=== PATIENT | male | born 1985 | race Caucasian/White ===

== ENCOUNTER 2020-01-04 15:42 | Emergency (ER) | payer MEDICAID, SELFPAY ==
[2020-01-04 16:11] VITALS: BP_SYST 160
[2020-01-04 16:23] VITALS: BP_SYST 160
== END 2020-01-04 16:20 | disposition home or self-care (01) ==
LOC: SED 15:42
DX: R50.9 Fever, unspecified (principal); Z20.828 Contact with and (suspected) exposure to other viral communicable diseases
CPT/HCPCS: 99283; U0003

== ENCOUNTER 2020-03-08 01:49 | Inpatient (IN) | payer MEDICAID, SELFPAY ==
[~2020-03-08] VITALS: Ht 167.6 cm; Wt 134.7 kg
[2020-03-08] VITALS (9 sets, daily range): BP systolic 120–175
--- NOTE | 2020-03-08 01:50 | NUR ---
Patient to ER bed 8 to gown for evaluation. Side rails up. Report given to SO CHOI.
--- NOTE | 2020-03-08 01:53 | NUR ---
ER at bedside examining patient.
--- NOTE | 2020-03-08 01:55 | NUR ---
Patient presents to the ER c/o lower abdominal pain radiating to left lower back x today. Patient states last BM x yesterday. Pt states pain started yesterday x 5 pm but has increased through the night. Pt radiates pain /. Denies pain when urinating, passing BM.
[2020-03-08] MEDS ORDERED: NACL 0.9% 1,000 ML IV ONE (02:01)
[2020-03-08] MEDS ORDERED: MORPHINE 4 MG/ML INJ. SYRINGE IVP ONE (02:15)
[2020-03-08] MEDS ORDERED: DIPHENHYDRAMINE INJ 50 MG/ML VIAL IVP ONE (02:15)
--- NOTE | 2020-03-08 02:43 | NUR ---
Pt taken to CT scan via gurney accompained by visitor services technician.
[2020-03-08 02:44] LABS: BASOPHILS # (AUTO) 0.1 K/uL (0.0-0.2); BASOPHILS % (AUTO) 0.4 % (0.0-2.0); EOSINOPHILS # (AUTO) 0.1 K/uL (0.0-0.4); EOSINOPHILS % (AUTO) 0.6 % (0.0-4.0); HEMATOCRIT 47.9 % (36-54); HEMOGLOBIN 15.5 g/dL (14.0-18.0); MEAN CORPUSCULAR HEMOGLOBIN 30 pg (27-31); MEAN CORPUSCULAR HGB CONC 32 % (32-36); MEAN CORPUSCULAR VOLUME 91 fL (79.0-98.0); MONOCYTES % (AUTO) 5.6 % (1.7-9.3); NEUTROPHILS # (AUTO) 13.3 K/uL (1.8-7.7); NEUTROPHILS % (AUTO) 76.4 % (40.0-70.0); PLATELET COUNT (AUTO) 346 K/uL (130-430); RED BLOOD CELL COUNT(AUTO) 5.25 MIL/uL (4.2-6.2); RED CELL DISTRIBUTION WIDTH 13.6 % (9.0-15.0); WHITE BLOOD COUNT (AUTO) 17.5 K/uL (4.8-10.8)
[2020-03-08 02:54] LABS: CALCIUM 8.8 mg/dL (8.4-11.0); CREATININE 0.87 mg/dL (0.55-1.30); POTASSIUM 3.7 mmol/L (3.5-5.1); TOTAL BILIRUBIN 0.5 mg/dL (0.0-1.0)
[2020-03-08 02:58] LABS: BILIRUBIN,URINE 1+ (NEGATIVE); BLOOD, URINE 1+ (NEGATIVE); CLARITY/URINE SL CLOUDY (CLEAR); COLOR,URINE YELLOW (YELLOW); GLUCOSE,URINE NEGATIVE (NEGATIVE); KETONES,URINE NEGATIVE (NEGATIVE); LEUKOCYTE ESTERASE ,URINE NEGATIVE (NEGATIVE); NITRITE, URINE NEGATIVE (NEGATIVE); PROTEIN URINE TRACE (NEGATIVE)
[2020-03-08] MEDS ORDERED: fentaNYL CITRATE/PF 100 MCG/2 ML AMP IVP ONE (03:30)
[2020-03-08 03:37] LABS: BACTERIA,URINE MODERATE /HPF (None Seen)
--- NOTE | 2020-03-08 03:50 | NUR ---
CHRISTIE COVID SWAB SENT TO LAB
[2020-03-08] MEDS ORDERED: PIPERACILLIN/TAZO 4.5 GM in NS 100 ML IV ONE (04:30)
[2020-03-08] MEDS ORDERED: ONDANSETRON HCL 4 MG/2 ML VIAL IVP PRN ×2 (04:30→18:45)
--- NOTE | 2020-03-08 04:35 | NUR ---
Patient will be admitted to care of Dr Beltran. Admitted to Medical Surgical unit. Will go to room 109c. Belongings list completed. Complete and up to date summary report printed. SBAR report to be given at bedside with opportunity for questions.
--- NOTE | 2020-03-08 05:24 | NUR ---
ADMIT NOTE Received pt from ER to the floor with a diagnosis of Laproscopic appendectomy possible open. Admission process initiated. patient oriented to pain management, safety and call light-teach back done.
--- NOTE | 2020-03-08 06:30 | NUR ---
CLOSING NOTES: Patient is laying in bed A&O x4 with no s/s of distress or discomfort. He does not have any complaints of pain at this time. IV on LAC patent and intact. Patient is NPO. All safety measures have been ensured. Bed is in the lowest position and call light within reach. Will endorse to dayshift nurse.
--- NOTE | 2020-03-08 07:23 | NUR ---
Dr. Witt called nursing station updated Dr. Witt on patient condition and situation. He stated he is planning to do surgery in mid-afternoon, around 1PM. Informed day shift RN.
--- NOTE | 2020-03-08 07:25 | NUR ---
Opening Note Patient is laying in bed A&O x4 with no signs of distress or discomfort noted, safety measures put in place, bed locked and at low position, call light within reach, fall and aspiration precautions put in place, will monitor patient for any changes.
[2020-03-08] MEDS: D5NS 1,000 ML IV SCH ×3 (09:56→21:44)
--- NOTE | 2020-03-08 09:58 | NUR ---
RN Rounds/Medication patient in bed awake and alert, administered medication ordered per MD, patient tolerated well, will continue to monitor patient for any changes, safety measures maintained.
--- NOTE | 2020-03-08 13:00 | NUR ---
Dr. Witt rounds spoke with the patient at bedside regarding surgery today, discussed risk/benefit with the patient, patient signed consent.
--- NOTE | 2020-03-08 13:09 | NUR ---
Spoke with Pharmacy spoke with Jah to send Zosyn 4.5gm IV to O.R. to be administered per Dr. Witt.
--- NOTE | 2020-03-08 13:15 | NUR ---
Surgery patient taken to surgery, patient stable.
[2020-03-08] MEDS ORDERED: HYDROmorphone 1 MG INJ. 1 MG/ML AMPUL IVP PRN ×2 (14:30→18:45)
[2020-03-08] MEDS ORDERED: NALOXONE HCL 0.4 MG/ML AMP (NARCAN) IVP PRN ×3 (14:30→18:45)
[2020-03-08] MEDS ORDERED: METOCLOPRAMIDE HCL 10 MG/2 ML VIAL IVP PRN (14:30)
[2020-03-08] MEDS: PIPERACILLIN/TAZO 4.5GM/DEX-IS 100 ML IV SCH ×2 (16:55→21:43)
[2020-03-08] MEDS ORDERED: PROPOFOL 200MG/ 20ML VIAL (DIPRIVAN) IV ONE (18:40)
[2020-03-08] MEDS ORDERED: NS 1000 ML IV.SOLN IV ONE (18:40)
[2020-03-08] MEDS ORDERED: SEVOFLURANE 15 MIN GAS INH ONE (18:40)
[2020-03-08] MEDS ORDERED: SUCCINYLCHOLINE CHLORIDE 20 MG/ML(QUELICIN) ONE (18:40)
[2020-03-08] MEDS ORDERED: fentaNYL CITRATE 250 MCG/5 ML AMP ONE (18:40)
[2020-03-08] MEDS ORDERED: NS IRRIG SOLN 1000 ML IR ONE (18:40)
[2020-03-08] MEDS ORDERED: ROCURONIUM BROMIDE 10 MG/ML (ZEMURON) ONE (18:40)
[2020-03-08] MEDS ORDERED: LR 1,000 ML IV.SOLN IV ONE (18:40)
[2020-03-08] MEDS ORDERED: LR 1,000 ML IV SCH (18:45)
--- NOTE | 2020-03-08 18:55 | NUR ---
Closing Note patient still in O.R., will endorse patient care to oncoming rug shampooer nurse.
[2020-03-08] MEDS ORDERED: HYDROmorphone 2 MG/ML VIAL ONE (19:27)
--- NOTE | 2020-03-08 20:00 | NUR ---
Opening note Received patient from recovery room via bed. Report received and assumed care. Patient s/p open appendectomy complicated with lysis of adhesions and bladder repair. AAO x 4, requires occasional reminders for safety. Connected to ICU monitor and vital signs taken. Abdominal binder observed with dressings CDI. IV site Left AC #20g, required redressing for patency. IVF infusing as per MD orders after verification. WILMAN drains x 2 noted with sanguinous drainage. Patient has Hx of sleep apnea requiring cpap that will be placed by RT when patient ready. No signs of distress noted as patient currently has O2 being delivered via simple mask at 10 L/min. Will continue to monitor patient as per unit protocol.
--- NOTE | 2020-03-08 20:40 | NUR ---
DR. MARIAH RIGGS CALLED TO CLARIFY ORDERS FOR IVF. PER MD MEZA LR AND CONTINUE D5NS @ 100 CC/HR. WILL CARRY OUT ORDERED.
[2020-03-08] MEDS: GABAPENTIN 300 MG CAPSULE PO SCH (21:00)
[2020-03-08] MEDS: KETOROLAC TROMETHAMINE 15 MG VIAL IVP SCH (21:38)
--- NOTE | 2020-03-08 22:30 | NUR ---
Patient requiring repositioning for comfort. Limited tolerance for mobility noted at this time due to post surgical pain to abdominal area. Morphine 4 mg IVP given. See details in MAR.
[2020-03-08] MEDS: MORPHINE 4 MG/ML INJ. SYRINGE IVP PRN (22:33)
[2020-03-09] VITALS (23 sets, daily range): BP systolic 99–152
--- NOTE | 2020-03-09 00:37 | NUR ---
DR. MARIAH RIGGS MADE AWARE OF PT TEMPERATURE 101.5 AND HR SUSTAINING IN 120s - 130s DESPITE PAIN MEDICATIONS THAT WERE GIVEN. TYLENOL 650 MG VIA NGT Q4H PRN ORDERED BY . WILL BE CARRIED OUT ORDERED.
[2020-03-09] MEDS ORDERED: ACETAMINOPHEN 650 MG/20.3 ML UDC NG PRN (00:45)
--- NOTE | 2020-03-09 01:00 | NUR ---
Dr LEMUS contacted and orders received by charge nurse Danielle for Tylenol. Patient has fever 101.5 F. Given via GT.
[2020-03-09] MEDS ORDERED: ACETAMINOPHEN 650 MG/20.3 ML UDC ONE (01:08)
[2020-03-09] MEDS: PIPERACILLIN/TAZO 4.5GM/DEX-IS 100 ML IV SCH ×3 (05:58→22:03)
[2020-03-09] MEDS: KETOROLAC TROMETHAMINE 15 MG VIAL IVP SCH ×3 (05:59→22:06)
[2020-03-09 06:21] LABS: BASOPHILS # (AUTO) 0.1 K/uL (0.0-0.2); BASOPHILS % (AUTO) 0.4 % (0.0-2.0); HEMATOCRIT 40.9 % (36-54); HEMOGLOBIN 13.7 g/dL (14.0-18.0); LYMPHOCYTES # (AUTO) 2.3 K/uL (1.0-5.5); LYMPHOCYTES % (AUTO) 13.5 % (20.5-51.5); MEAN CORPUSCULAR HEMOGLOBIN 31 pg (27-31); MEAN CORPUSCULAR HGB CONC 33 % (32-36); MEAN CORPUSCULAR VOLUME 92 fL (79.0-98.0); MONOCYTES # (AUTO) 1.3 K/uL (0.0-1.0); MONOCYTES % (AUTO) 7.5 % (1.7-9.3); NEUTROPHILS # (AUTO) 13.5 K/uL (1.8-7.7); NEUTROPHILS % (AUTO) 78.6 % (40.0-70.0); PLATELET COUNT (AUTO) 296 K/uL (130-430); RED BLOOD CELL COUNT(AUTO) 4.48 MIL/uL (4.2-6.2); RED CELL DISTRIBUTION WIDTH 13.9 % (9.0-15.0); WHITE BLOOD COUNT (AUTO) 17.1 K/uL (4.8-10.8)
[2020-03-09 06:54] LABS: CALCIUM 7.6 mg/dL (8.4-11.0); CREATININE 0.97 mg/dL (0.55-1.30); POTASSIUM 3.9 mmol/L (3.5-5.1)
--- NOTE | 2020-03-09 07:00 | NUR ---
Dr Witt at bedside Orders received for Ok for patient to be transferred to Telemetry unit. Patient reported wanting to drink but Dr Witt reported that at this point will continue NPO due to excess swelling of the bowels; "if ice would be given, patient needs to spit it out after melting".
--- NOTE | 2020-03-09 07:15 | NUR ---
Monitoring pt on telemetry status per md order
--- NOTE | 2020-03-09 07:15 | NUR ---
Opening Note Received report from endorsing RN. Pt currently asleep, arousable, on 5L O2 via NC. Pt does not want CPAP on at this time. NGT to low intermittent suction with dark green drainage. Dressings intact, minimal drainage noted. WILMAN drains on right and left abdomen with sanguineous drainage. Sales in place with blood tinged with some yellow urine draining to gravity. Afebrile. Abdominal binder in place. No other complaints at this time.
[2020-03-09] MEDS ORDERED: metroNIDAZOLE 500 mg/NS 100 ML IV ONE (09:00)
[2020-03-09] MEDS: GABAPENTIN 300 MG CAPSULE PO SCH ×3 (09:11→21:00)
--- NOTE | 2020-03-09 10:11 | NUR ---
Pt awake and brushing teeth. States pain 3/10, bearable.
--- NOTE | 2020-03-09 11:00 | NUR ---
Dr. Alfreda Rosario rounding on pt who is sleeping at this moment. Dr. Rosario made aware about pt not wanting to wear cpap for sleep. Pt currently on 5L O2 via NC, saturates 94-98%. No acute distress noted at this time.
[2020-03-09] MEDS: MORPHINE 4 MG/ML INJ. SYRINGE IVP PRN (12:48)
[2020-03-09] MEDS: D5NS 1,000 ML IV SCH ×2 (12:52→22:16)
--- NOTE | 2020-03-09 13:13 | NUR ---
Administered prn morphine per MD order and repositioned pt. Pt doing oral care. No other complaints at this time.
--- NOTE | 2020-03-09 14:46 | NUR ---
Nutrition Update Carlos Scale 15 noted. Pt admitted for laparoscopic appendectomy possible open. Diet: NPO BMI: 47.9 kg/m2 RD to follow per nutrition care standards.
--- NOTE | 2020-03-09 16:02 | NUR ---
Repositioned pt, pt states pain is bearable right now at 2/10. Performing self oral care. Pt's mother called and states she will drop off cpap machine for pt.
--- NOTE | 2020-03-09 17:00 | NUR ---
Received CPAP machine from home from patient's mother, Mary.
[2020-03-09] MEDS: metroNIDAZOLE 500 mg/NS 100 ML IV SCH (17:52)
--- NOTE | 2020-03-09 18:25 | NUR ---
Patient placed back on CPAP 5, 25% by RT.
--- NOTE | 2020-03-09 19:09 | NUR ---
Closing Pt in no distress at this time, states pain is bearable at 2/10. IV site intact, patent, no infiltration noted. No other complaints at this time. Endorsed plan of care to night shift supervisor RN.
--- NOTE | 2020-03-09 19:15 | NUR ---
Report received from day shift nurse. Pt is sleeping but easily arousable. Pt denies pain or discomfort. Pt is on CPAP at 5 with FIO2 of 25% and no respiratory distress noted. IVF of D5NS is infusing well via LAC at 100ml/hr without any signs of infiltration. NG Tube in left nare is connected to LIS and noted with brownish drainage. Abdominal dressing noted with abdominal binder in place. Right and left WILMAN drains to bulb suction noted with small amount of bloody drainage. Left WILMAN site noted with old blood stain and no signs of active bleeding noted at the site. Sales Cath to gravity drainage noted with blood tinged urine. Fall and safety precautions are in place.
--- NOTE | 2020-03-09 20:45 | NUR ---
Pt's mother Mary called for updates and all her questions were answered.
--- NOTE | 2020-03-09 21:19 | NUR ---
Pt requested to be taken off BIPAP. Rt switched pt from CPAP to oxygen at 5L/min via NC. No respiratory distress noted. Pt encouraged to cough, turn, deep breath and to use IS 10x Q 1hr WA. Pt verbalized understanding. IVF is infusing well in LAC at 100ml/hr. NGT remains connected to LIS and draining brownish liquid. Call light is with pt and bed alarm is on.
--- NOTE | 2020-03-09 23:30 | NUR ---
Pt is awake and not in any distress. Oxygen is on at 5L/min per NC. Call light is with pt and bed alarm is on.
[2020-03-10] VITALS: BP_SYST 108
[2020-03-10] MEDS: metroNIDAZOLE 500 mg/NS 100 ML IV SCH ×3 (01:14→17:37)
--- NOTE | 2020-03-10 01:30 | NUR ---
Pt is sleeping without any respiratory distress noted. Fall and safety precautions are in place.
--- NOTE | 2020-03-10 03:10 | NUR ---
Complete CHG bed bath given, including dionne and Sales Cath care. Pt gave himself oral care.
[2020-03-10 04:00] VITALS: BP_SYST 128
--- NOTE | 2020-03-10 04:30 | NUR ---
Pt remains on oxygen at 5L/min per NC. No respiratory distress noted. No c/o pain or discomfort. IVF is infusing well in LAC. NGT to LIS draining scanty amount of greenish liquid. Fall and safety precautions are in place.
--- NOTE | 2020-03-10 05:29 | NUR ---
Pt was switched to CPAP 5 by RT per pt's request. No respiratory distress noted at this time.
[2020-03-10] MEDS: PIPERACILLIN/TAZO 4.5GM/DEX-IS 100 ML IV SCH ×3 (05:45→21:27)
[2020-03-10] MEDS: KETOROLAC TROMETHAMINE 15 MG VIAL IVP SCH ×3 (05:45→22:00)
--- NOTE | 2020-03-10 06:59 | NUR ---
Pt is resting quietly in bed. No c/o pain or discomfort at this time. Abdominal dressing is without any signs of active bleeding. Right and Left WILMAN drains to bulb suction intact. NGT to LIS intact. IVF is infusing well in LAC without any signs of infiltration. Will endorse to day shift nurse.
--- NOTE | 2020-03-10 07:10 | NUR ---
RT NOTE: 0710 Pt awake and requested to be off BiPAP at this time. Pt taken off BiPAP and placed on 5lpm NC. Pt tolerating well. Addendum: 03/10/20 at 0730 by Theodora Umana RT Amended: Links added.
--- NOTE | 2020-03-10 07:30 | NUR ---
Received patient and endorsed report from [facility] shift nurse. Patient sleeping in bed with side rails x 3 up. Call light with in reach.
[2020-03-10 08:00] VITALS: BP_SYST 131
[2020-03-10 09:37] LABS: BASOPHILS # (AUTO) 0.1 K/uL (0.0-0.2); BASOPHILS % (AUTO) 0.6 % (0.0-2.0); EOSINOPHILS # (AUTO) 0.2 K/uL (0.0-0.4); EOSINOPHILS % (AUTO) 1.7 % (0.0-4.0); HEMATOCRIT 34.9 % (36-54); HEMOGLOBIN 11.6 g/dL (14.0-18.0); LYMPHOCYTES # (AUTO) 1.9 K/uL (1.0-5.5); LYMPHOCYTES % (AUTO) 15.7 % (20.5-51.5); MEAN CORPUSCULAR HEMOGLOBIN 31 pg (27-31); MEAN CORPUSCULAR HGB CONC 33 % (32-36); MEAN CORPUSCULAR VOLUME 92 fL (79.0-98.0); MONOCYTES # (AUTO) 0.9 K/uL (0.0-1.0); MONOCYTES % (AUTO) 7.9 % (1.7-9.3); NEUTROPHILS # (AUTO) 8.8 K/uL (1.8-7.7); NEUTROPHILS % (AUTO) 74.1 % (40.0-70.0); PLATELET COUNT (AUTO) 246 K/uL (130-430); RED BLOOD CELL COUNT(AUTO) 3.81 MIL/uL (4.2-6.2); WHITE BLOOD COUNT (AUTO) 11.9 K/uL (4.8-10.8)
[2020-03-10] MEDS: GABAPENTIN 300 MG CAPSULE PO SCH ×3 (09:44→21:06)
[2020-03-10] MEDS: MORPHINE 4 MG/ML INJ. SYRINGE IVP PRN (09:51)
[2020-03-10 09:55] LABS: CALCIUM 7.7 mg/dL (8.4-11.0); CREATININE 0.99 mg/dL (0.55-1.30); POTASSIUM 3.4 mmol/L (3.5-5.1)
[2020-03-10 12:00] VITALS: BP_SYST 134
--- NOTE | 2020-03-10 13:15 | NUR ---
Up on chair assisted by PT.
[2020-03-10] MEDS: D5NS 1,000 ML IV SCH (13:30)
--- NOTE | 2020-03-10 15:24 | NUR ---
Dietitian Recommendations * Consider advance diet if/when medically appropriate (clear liquid diet) * Pt may benefit from wt management MNT prior to D/C LP, RD Please refer to Nutrition Assessment for details. Addendum: 03/10/20 at [address] Amended: Links added.
[2020-03-10 16:00] VITALS: BP_SYST 145
--- NOTE | 2020-03-10 17:30 | NUR ---
Patient transferred to [facility] room 109 C via bed with assistance of second nurse with portable tele monitor and portable oxygen at 5 liters nasal cannula. Gave report to [facility] Nurse and endorsed report. Patient stated thank you for care. Mom took home CPAP machine, shoes, and one leg splint home. Patient placed in room set up on tele monitor, 02 nasal cannula 5 liters, call light with in reach, side rails x [address] up[address] Placed walker next to bedside.
--- NOTE | 2020-03-10 19:00 | NUR ---
NOTE Received pt from ICU at 1945 via bed. Pt was attached to tele unit and NGT to LCS. IV in left AC intact and patent infusing IVF's well. Pt has 2 WILMAN drains - 1)right and 2) left. Pt has abdominal binder. Sales cathetr intact and draining. O2 on at 5L/nc. No SOB/resp distress or pain/discomfort was noted. Pt has his cellphone and hat brim curler at bedside. Pt's belongings and medications all at bedside and in med room at this time. Pt was oriented to call light and nursing routines and procedures at this time. Questions/concerns were answered at this time. Call light within reach.
[2020-03-10 19:20] VITALS: BP_SYST 146
--- NOTE | 2020-03-10 19:20 | NUR ---
INITIAL NOTES PATIENT IS STABLE AND LAYING IN BED. NO S/S OF RESPIRATORY DISTRESS NOTED. CALL LIGHT IN REACH. PATIENT SUCCESSFULLY DEMONSTRATES USAGE OF CALL LIGHT. BED IS LOCKED, ALARMED, AND AT THE LOWEST POSITION. FALL, SAFETY, ASPIRATION, AND RESPIRATORY PRECAUTIONS WILL BE IN PLACE THROUGHOUT THE SHIFT. PLAN OF CARE IS DISCUSSED WITH PATIENT.
--- NOTE | 2020-03-10 21:25 | NUR ---
CPAP PT PLACED ON CPAP AT THIS TIME. CPAP OF 5 AND FIO2 OF 25%. PT TOLERATING WELL. NO S/S OF RESPIRATORY DISTRESS NOTED. CALL LIGHT IN REACH.
--- NOTE | 2020-03-10 23:25 | NUR ---
PT IS STABLE AND SLEEPING IN BED. NO S/S OF RESPIRATORY DISTRESS NOTED. CALL LIGHT IN REACH.
[2020-03-11] MEDS: metroNIDAZOLE 500 mg/NS 100 ML IV SCH ×3 (00:08→16:24)
[2020-03-11 00:25] VITALS: BP_SYST 148
--- NOTE | 2020-03-11 01:25 | NUR ---
PT IS STABLE AND SLEEPING IN BED. NO S/S OF RESPIRATORY DISTRESS NOTED. CALL LIGHT IN REACH.
[2020-03-11] MEDS: D5NS 1,000 ML IV SCH ×2 (03:24→16:25)
--- NOTE | 2020-03-11 03:25 | NUR ---
PT IS BACK ON NC AT 5L. PT TOLERATING WELL. NO S/S OF RESPIRATORY DISTRESS NOTED.
--- NOTE | 2020-03-11 04:00 | NUR ---
PEFORMED ORAL CARE AT THIS TIME. PT TOLERATED WELL. NO S/S OF RESPIRATORY DISTRESS NOTED.
[2020-03-11] MEDS: PIPERACILLIN/TAZO 4.5GM/DEX-IS 100 ML IV SCH ×3 (05:12→21:21)
[2020-03-11] MEDS: KETOROLAC TROMETHAMINE 15 MG VIAL IVP SCH ×3 (05:12→21:21)
--- NOTE | 2020-03-11 06:35 | NUR ---
CLOSING NOTES PATIENT IS STABLE AND LAYING IN BED. NO S/S OF RESPIRATORY DISTRESS NOTED. CALL LIGHT IN REACH. BED IS LOCKED, AND AT THE LOWEST POSITION. FALL, SAFETY, ASPIRATION, AND RESPIRATORY PRECAUTIONS HAS BEEN IN PLACE THROUGHOUT THE SHIFT. WILL CONTINUE TO MONITOR UNTIL SBAR REPORT IS ENDORSE TO AM NURSE BY BEDSIDE.
[2020-03-11 07:43] VITALS: BP_SYST 148
[2020-03-11 08:00] VITALS: BP_SYST 144
--- NOTE | 2020-03-11 08:00 | NUR ---
Note Pt sitting up in bed with HOB at 75'. O2 on at 5L/nc. Tele unit attached and intact. Left AC IV intact and patent infusing IVF's. No SOB/resp distress or pain/discomfort was noted at this time. NGT to LIS - drainage minimal at this time. Sales catheter intact and draining. No needs noted at this time. Call light within reach. Dr Witt at bedside - abdominal dressing removed and abdominal incision intact with lisette. No drainage/bleeding/odor noted at this time. Instructed to apply Betadine and abdominal pad dressing. Dressing done with paper tape.
[2020-03-11] MEDS: GABAPENTIN 300 MG CAPSULE PO SCH ×3 (08:50→20:31)
[2020-03-11 09:17] LABS: BASOPHILS # (AUTO) 0.1 K/uL (0.0-0.2); BASOPHILS % (AUTO) 1.3 % (0.0-2.0); EOSINOPHILS # (AUTO) 0.4 K/uL (0.0-0.4); EOSINOPHILS % (AUTO) 4.3 % (0.0-4.0); HEMATOCRIT 32.9 % (36-54); HEMOGLOBIN 11.1 g/dL (14.0-18.0); LYMPHOCYTES # (AUTO) 1.8 K/uL (1.0-5.5); LYMPHOCYTES % (AUTO) 17.5 % (20.5-51.5); MEAN CORPUSCULAR HEMOGLOBIN 31 pg (27-31); MEAN CORPUSCULAR HGB CONC 34 % (32-36); MEAN CORPUSCULAR VOLUME 92 fL (79.0-98.0); MONOCYTES # (AUTO) 0.7 K/uL (0.0-1.0); MONOCYTES % (AUTO) 6.5 % (1.7-9.3); NEUTROPHILS # (AUTO) 7.3 K/uL (1.8-7.7); NEUTROPHILS % (AUTO) 70.4 % (40.0-70.0); PLATELET COUNT (AUTO) 286 K/uL (130-430); RED BLOOD CELL COUNT(AUTO) 3.57 MIL/uL (4.2-6.2); RED CELL DISTRIBUTION WIDTH 13.9 % (9.0-15.0); WHITE BLOOD COUNT (AUTO) 10.4 K/uL (4.8-10.8)
[2020-03-11 09:42] LABS: CALCIUM 7.9 mg/dL (8.4-11.0); CREATININE 0.94 mg/dL (0.55-1.30); POTASSIUM 3.5 mmol/L (3.5-5.1)
--- NOTE | 2020-03-11 10:00 | NUR ---
Note Pt has had Abdominal binder on all shift. Pt assisted in getting OOB to BSC. Pt able to pass gas - burp at this time. No bowel movement at this time. Pt assisted back to bed. Pt's NGT was clamped per Dr Witt's verbal instruction for 2 hours - starting now. Call light within reach.
[2020-03-11] MEDS: MORPHINE 4 MG/ML INJ. SYRINGE IVP PRN (10:07)
--- NOTE | 2020-03-11 12:00 | NUR ---
Note Pt was given Morphine IVP for pain - pain has decreased now per pt. Pain tolerable. Denies any needs at this time. Pt's mother has called 2-3 times for updates on pt's status. Call light within reach. Pt drowsy and in/out of sleep all shift. Pt encouraged to use IS q1' 10X while awake. Pt has his cellphone with reach as well all shift.
[2020-03-11 13:21] VITALS: BP_SYST 141
--- NOTE | 2020-03-11 13:50 | NUR ---
Note Pt resting in bed - NGT to LIS - minimal output noted. Sales catheter intact and draining all shift. 2 WILMAN drains at lower abdomen. 1) right side of abdomen 2)left side of abdomen intact and draining all shift. Call light within reach.
--- NOTE | 2020-03-11 17:00 | NUR ---
Note Pt worked with PT - getting OOB. Pt tolerated exercise well. Pt resting in bed at this time. NGT clamped and pt given cold water to sip on for dry mouth and throat. Pt has had his abdominal binder on all shift. Sales catheter intact and draining. No needs noted at this time. Call light within reach.
--- NOTE | 2020-03-11 18:15 | NUR ---
Note Pt assisted in sitting up in BS chair - pt has NGT clamped. No N?V noted all shift. IV in left AC intact and patent infusing IVF's well. Sales catheter intact and draining. 2 WILMAN drains. One on the left and one on the right. Pt has abdominal binder on all shift. Pt was checked on q1' and PRN all shift for needs and care. Pt was maintained with safety precautions all shift. Pt has O2 on at 3L/nc. Pt was kept NPO most of shift except for some ice water to sip on. No needs noted at this time. Call light within reach.
[2020-03-11 18:24] VITALS: BP_SYST 123
[2020-03-11 19:45] VITALS: BP_SYST 138
--- NOTE | 2020-03-11 19:45 | NUR ---
INITIAL NOTES PATIENT IS STABLE AND LAYING IN BED. NO S/S OF RESPIRATORY DISTRESS NOTED. CALL LIGHT IN REACH. PATIENT SUCCESSFULLY DEMONSTRATES USAGE Of CALL LIGHT. BED IS LOCKED, ALARMED, AND AT THE LOWEST POSITION. FALL, SAFETY, ASPIRATION, AND RESPIRATORY PRECAUTIONS WILL BE IN PLACE THROUGHOUT THE SHIFT. PLAN OF CARE IS DISCUSSED WITH PATIENT.
--- NOTE | 2020-03-11 21:45 | NUR ---
PATIENT IS BRUSHING HIS TEETH. PATIENT TOLERATED WELL. NO S/S OF RESPIRATORY DISTRESS NOTED. CALL LIGHT IN REACH. B
--- NOTE | 2020-03-11 22:00 | NUR ---
CELL PHONE Patient was asking for his cell-phone around 2200 on 03/11/2020. Checked the room, patient's phone was not found. Patient had smart watch to alert when cell-phone is near by. No alarm heard. Patient states he asked security to charge his phone. Called security, security states there was no cell-phone there. Patient states his phone is turned off. Patient states that they changed his linens in the morning. Looked in dirty linens, no phone found. Notified Charge nurse and [employer]. Called [employer]. Went with [employer] to look for phone outside in the dirty linens. Patient allowed usage of smart watch outside. No alarm heard. Looked through some dirty linens, no cell-phone found. Asked [employer] to continue the search. Notified patient about the search and returned smart watch.
[2020-03-12] VITALS: BP_SYST 144
--- NOTE | 2020-03-12 00:58 | NUR ---
PHONE FOUND AT THIS TIME. CELLPHONE WAS LOCATED IN BETWEEN THE BED.
--- NOTE | 2020-03-12 01:40 | NUR ---
ARRHYTHMIA PT HEART RATE WAS 45, ARRHYTHMIC. PT WAS SLEEPING ON THE CPAP. PT WAS WOKEN UP. HEART RATE CONVERTED TO SINUS RHYTHM. MADE CHARGE NURSE AWARE.
[2020-03-12] MEDS: D5NS 1,000 ML IV SCH (03:19)
[2020-03-12] MEDS: metroNIDAZOLE 500 mg/NS 100 ML IV SCH ×3 (03:19→17:34)
--- NOTE | 2020-03-12 03:40 | NUR ---
PATIENT IS STABLE AND ON THE CPAP SLEEPING. NO S/S OF RESPIRATORY DISTRESS NOTED. CALL LIGHT IN REACH.
--- NOTE | 2020-03-12 04:15 | NUR ---
PATIENT IS STABLE AND LAYING IN BED. NO S/S OF RESPIRATORY DISTRESS NOTED. CALL LIGHT IN REACH.
[2020-03-12] MEDS: PIPERACILLIN/TAZO 4.5GM/DEX-IS 100 ML IV SCH ×3 (05:26→21:51)
[2020-03-12] MEDS: KETOROLAC TROMETHAMINE 15 MG VIAL IVP SCH ×3 (05:30→21:51)
--- NOTE | 2020-03-12 07:37 | NUR ---
CLOSING NOTES PATIENT IS STABLE AND LAYING IN BED. NO S/S OF RESPIRATORY DISTRESS. CALL LIGHT IN REACH. SBAR REPORT ENDORSED TO AM NURSE BY BEDSIDE.
[2020-03-12] MEDS ORDERED: KCL 20 mEq in D5/0.45NS 1000mL 1,000 ML IV SCH (07:45)
[2020-03-12 08:00] VITALS: BP_SYST 143
--- NOTE | 2020-03-12 08:00 | NUR ---
RT NOTE: 0800 Pt taken off BiPAP and placed on 5LPM NC. Pt is tolerating well. No resp distress noted. Addendum: 03/12/20 at 0805 by Theodora Umana RT Amended: Links added.
--- NOTE | 2020-03-12 08:00 | NUR ---
Opening Notes/NEW IV ACCESS/NEW IVF ORDER Patient is awake, alert and oriented x4. No resp distress noted. Breathing is even and unlabored. Pt remains on continuous oxygen via NC @ 4 LPM, tolerated well. IV site on left FA, is leaking. Removed IV access. New IV access on right FA, 22 gauge intact and flushing well. Dressing is clean and dry, no signs of infiltration. Obtained new orders from Dr. Witt for IVF. KCl 20 mEq + D5 1/2 NS @ 75 cc/hr, infusing well at this time. NGTUBE in left nare, on low intermittent suction, tolerated well. Pt denies any NVD, cough or abnormal bleeding. Sales catheter in place, draining by gravity. Fountain tinged urine noted. Patient is also noted with 2 WILMAN Drains on right and left lower abdomen, serous drainage noted. Abdominal incision intact at this time. No redness or irritaiton noted. Covered with abdominal binder at this time. All needs met at this time, Safety and fall precautions in place. Bed in lowest position, locked. Will continue to monitor.
[2020-03-12] MEDS: KCL 20 mEq in D5/0.45NS 1000mL 1,000 ML IV SCH ×2 (08:50→21:52)
[2020-03-12 09:04] LABS: BASOPHILS # (AUTO) 0.1 K/uL (0.0-0.2); BASOPHILS % (AUTO) 1.5 % (0.0-2.0); EOSINOPHILS # (AUTO) 0.5 K/uL (0.0-0.4); EOSINOPHILS % (AUTO) 5.9 % (0.0-4.0); HEMATOCRIT 33.8 % (36-54); HEMOGLOBIN 11.3 g/dL (14.0-18.0); LYMPHOCYTES # (AUTO) 2.1 K/uL (1.0-5.5); LYMPHOCYTES % (AUTO) 23.9 % (20.5-51.5); MEAN CORPUSCULAR HEMOGLOBIN 31 pg (27-31); MEAN CORPUSCULAR HGB CONC 34 % (32-36); MEAN CORPUSCULAR VOLUME 93 fL (79.0-98.0); MONOCYTES # (AUTO) 0.6 K/uL (0.0-1.0); NEUTROPHILS # (AUTO) 5.4 K/uL (1.8-7.7); NEUTROPHILS % (AUTO) 61.7 % (40.0-70.0); PLATELET COUNT (AUTO) 328 K/uL (130-430); RED BLOOD CELL COUNT(AUTO) 3.64 MIL/uL (4.2-6.2); RED CELL DISTRIBUTION WIDTH 13.7 % (9.0-15.0); WHITE BLOOD COUNT (AUTO) 8.8 K/uL (4.8-10.8)
[2020-03-12] MEDS: GABAPENTIN 300 MG CAPSULE PO SCH ×3 (09:11→21:52)
[2020-03-12 09:17] LABS: CALCIUM 7.7 mg/dL (8.4-11.0); CREATININE 0.77 mg/dL (0.55-1.30); POTASSIUM 3.6 mmol/L (3.5-5.1)
--- NOTE | 2020-03-12 10:30 | NUR ---
Notes Patient is asleep in bed at this time. No resp distress noted. Breathing is even and unlabored. No signs of pain at this time. Will continue to monitor.
--- NOTE | 2020-03-12 11:30 | NUR ---
CLEAR LIQUID DIET Patients NG TUBE has no noted output. S/w Dr. Witt, started patient on clear liquid diet. Called the kitchen for a tray, patient tolerated clear liquids without difficulty. No nausea or vomiting noted. Will continue to monitor.
[2020-03-12 11:51] VITALS: BP_SYST 147
--- NOTE | 2020-03-12 12:00 | NUR ---
Notes Patient is sitting in his chair beside the bed. No resp distress noted. Breathing is even and unlabored at this time. Denies any pain. Will continue to monitor.
--- NOTE | 2020-03-12 14:20 | NUR ---
Notes Patient is laying in bed resting at this time. Patient was assisted to sit in his chair by his bed. Patients villar catheter is still noted pink-tinged at this time. Denies any pain at the villar site. No resp distress noted. Breathing is even and unlabored. Denies any pain at this time. Will continue to monitor.
[2020-03-12 16:33] VITALS: BP_SYST 140
--- NOTE | 2020-03-12 16:47 | NUR ---
Notes Patient is sleeping in bed at this time. No resp distress noted. Breathing is even and unlabored. Shows no signs of pain at this time. Will continue to monitor.
--- NOTE | 2020-03-12 17:00 | NUR ---
REMOVED NG TUBE Removed patient NG TUBE, noted with 50 cc of output throughout shift. Patient tolerated removal of GTUBE well. No bleeding or irritation noted at left nare. Patient denies any nausea or pain at this time. Will continue to monitor.
--- NOTE | 2020-03-12 18:24 | NUR ---
Closing Notes Patient is sitting up in his chair by his bed. No resp distress noted. Breathing is even and unlabored. Patient denies any pain at this time. IV site on right FA, 22 gauge intact at this time. NO infiltration or irritation noted at this time. Dressing clean and dry. KCl 20 mEq + D5 1/2 NS @ 75 cc/hr, infusing well at this time. Villar catheter in place, draining by gravity, emptied out 400 cc of pink-tinged urine. Denies any pain at villar catheter site. Pt remains on a clear liquid diet, no swallowing issues noted. BSC commode at bedside and SCDs in place. All needs met at this time. Safety and fall precautions in place. Call light within reach. Bed in lowest position, locked. Will continue to monitor.
--- NOTE | 2020-03-12 20:00 | NUR ---
OPENING NOTE SBAR REPORT RECEIVED FROM RN. CARE ASSUMED. PT SITTING IN CHAIR. NO SIGNS OR SYMPTOMS OF DISTRESS NOTED. PT ON ROOM AIR. PT ANOX4. PT DENIES ANY PAIN. PT SINUS RHYTHM ON MONITOR. PT HAS 22G IV TO RIGHT FOREARM RUNNING 20 MEQ K IN D5 1/2 NS @ 75 ML/HR. RADIAL AND PEDAL PULSES NORMAL. ABDOMINAL BINDER IN PLACE. ABDOMEN SOFT AND TENDER S/P APPENDECTOMY 2 DAYS AGO. BILATERAL LOWER ABDOMINAL WILMAN DRAINS IN PLACE. SEROSANGUINEOUS FLUID VISUALIZED IN WILMAN DRAIN. ALONSO CATHETER IN PLACE FLOWING TO GRAVITY. URINE NOE. PT EDUCATED ON FALL PRECAUTIONS AND CALL LIGHT PROCEDURE. SAFETY PRECAUTIONS IN PLACE. CALL LIGHT WITH IN REACH. WILL CONTINUE TO MONITOR.
[2020-03-12 20:07] VITALS: BP_SYST 160
--- NOTE | 2020-03-12 21:05 | NUR ---
IV INSERTION NEWSPAPER PUBLISHERSO CAZARES INSERTED 20G IV TO RIGHT AC. PT TOLERATED PROCEDURE WELL. CONNECTED FLUIDS TO SITE NO SIGNS OF INFILTRATION. WILL CONTINUE TO MONITOR.
--- NOTE | 2020-03-12 22:00 | NUR ---
UPDATE PT LAYING IN BED WATCHING VIDEOS ON PHONE. PT DENIES ANY PAIN. NO SIGNS OR SYMPTOMS OF DISTRESS NOTED. WILL CONTINUE TO MONITOR.
--- NOTE | 2020-03-13 | NUR ---
UPDATE PT LAYING IN BED. PT SLEEPING WEARING CPAP DEVICE. NO SIGNS OR SYMPTOMS OF DISTRESS NOTED. WILL CONTINUE TO MONITOR.
[2020-03-13] MEDS: metroNIDAZOLE 500 mg/NS 100 ML IV SCH ×3 (00:07→18:01)
--- NOTE | 2020-03-13 02:00 | NUR ---
UPDATE PT LAYING IN BED. PT SLEEPING WEARING CPAP DEVICE. NO SIGNS OR SYMPTOMS OF DISTRESS NOTED. WILL CONTINUE TO MONITOR.
[2020-03-13] MEDS: MORPHINE 4 MG/ML INJ. SYRINGE IVP PRN (02:47)
[2020-03-13] MEDS: PIPERACILLIN/TAZO 4.5GM/DEX-IS 100 ML IV SCH ×3 (05:42→22:19)
[2020-03-13] MEDS: KETOROLAC TROMETHAMINE 15 MG VIAL IVP SCH ×2 (05:43→15:33)
--- NOTE | 2020-03-13 07:45 | NUR ---
Opening Note patient in bed resting, a/o x 4, no signs of distress noted, supported patient when moving from bed to chair, patient tolerated well, IV live patent and infusing well, villar catheter intact and draining by gravity, WILMAN tubes on left and right side, safety measures put in place, fall and aspiration precautions put in place, bed locked and at low position, call light within reach, fall and aspiration precautions put in place, will monitor patient for any changes.
--- NOTE | 2020-03-13 07:45 | NUR ---
CLOSING NOTE PT LAYING IN BED. NO SIGNS OR SYMPTOMS OF DISTRESS NOTED. SBAR REPORT GIVEN NALOD RN. CARE ENDORSED.
[2020-03-13 08:00] VITALS: BP_SYST 142
[2020-03-13] MEDS: GABAPENTIN 300 MG CAPSULE PO SCH ×3 (08:56→21:00)
--- NOTE | 2020-03-13 08:57 | NUR ---
RN Rounds/Medications patient in bed resting, no signs of distress noted, administered medication ordered per MD, patient tolerated well, no other needs at this time, will continue to monitor patient for any changes, safety measures maintained.
[2020-03-13 09:55] LABS: BASOPHILS # (AUTO) 0.3 K/uL (0.0-0.2); BASOPHILS % (AUTO) 2.5 % (0.0-2.0); EOSINOPHILS # (AUTO) 0.7 K/uL (0.0-0.4); EOSINOPHILS % (AUTO) 6.5 % (0.0-4.0); HEMATOCRIT 33.1 % (36-54); HEMOGLOBIN 11.2 g/dL (14.0-18.0); LYMPHOCYTES # (AUTO) 2.4 K/uL (1.0-5.5); LYMPHOCYTES % (AUTO) 21.4 % (20.5-51.5); MEAN CORPUSCULAR HEMOGLOBIN 31 pg (27-31); MEAN CORPUSCULAR HGB CONC 34 % (32-36); MEAN CORPUSCULAR VOLUME 92 fL (79.0-98.0); MONOCYTES # (AUTO) 1.1 K/uL (0.0-1.0); MONOCYTES % (AUTO) 9.6 % (1.7-9.3); NEUTROPHILS # (AUTO) 6.8 K/uL (1.8-7.7); PLATELET COUNT (AUTO) 325 K/uL (130-430); RED CELL DISTRIBUTION WIDTH 13.8 % (9.0-15.0); WHITE BLOOD COUNT (AUTO) 11.4 K/uL (4.8-10.8)
[2020-03-13 10:20] LABS: CREATININE 0.86 mg/dL (0.55-1.30); POTASSIUM 3.3 mmol/L (3.5-5.1)
--- NOTE | 2020-03-13 10:50 | NUR ---
DC Tele to [facility] director of market intelligence at bedside assessing patient, patient will continue on clear liquid diet, no other needs for patient at this time, safety measures maintained.
[2020-03-13 11:25] VITALS: BP_SYST 142
--- NOTE | 2020-03-13 12:25 | NUR ---
WILMAN drained/incentive spirometer education patient in bed resting, drained WILMAN tubes on both left and right side, patient tolerated well, educated patient on the use of incentive spirometer, patient verbalized understanding and showed proper use, will continue to monitor patient for any changes, safety measures maintained
--- NOTE | 2020-03-13 14:32 | NUR ---
DISCHARGE PLANNING Order for dc planning for home health, plan for tomorrow 03/14. Called & informed Saira @ [facility], ph [phone] fax [phone]. States to fax to her & will set [facility] Spoke with pt @ bedside & agreeable with plan for home with home health. Verified address/ph correct on face sheet. Parents will be home to assist him. States has CPAP @ home.
--- NOTE | 2020-03-13 14:34 | NUR ---
Discharge Planning: DCP faxed patient referral to Saira [facility] (f [phone] p [phone]) DCP to follow up. Addendum: 03/13/20 at 1647 by Shannon FOREMAN DCP received a message from Scotty at [facility] can not accept patient, DCP faxed pt referral to [facility] which is contracted with patients insurance. DCP to follow up Saira at [facility] (f [phone] p [phone]) DCP to follow up.
--- NOTE | 2020-03-13 14:36 | NUR ---
Nutrition F/U Admitting Diagnosis: Laparoscopic appendectomy possible open Medical History Comment: PMH: spina bifida per physician notes Pt found w/ acute appendicitis s/p laparoscopic appendectomy converted to open appendectomy per EMR SARS-CoV-2 Ag (Rapid) negative 03/08/20 Subjective Information Pt is POD #5 s/p open appendectomy per EMR. Pt seen in room 109 bed C, w/ RN Bisi at bedside providing care. Per EMR review, GI plan to continue w/ liquid diet while a/w return of bowel function. Pt denied having BM yet and RD advised pt to report any BM to medical staff so diet can be advanced. RD also advised pt to drink Ensure Clear to optimize nutrient intake while on clear liquid diet. RD reviewed pt's current EMR including diet Hx, physician notes, nursing notes, pertinent labs/meds/procedures, care trends and care activity. Advancement of diet is warranted. Current Diet Order/Nutrition Support Clear liquid Skin Integrity Comment: Carlos scale: 18; abd surgical incisions per EMR Current % PO Good 75% of 1 meals recorded. NEW Estimated Energy Expenditure (kcals/day) 2217 kcal/day (MSJ x 1.2 x1.2 -1000 CBW for morbid obesity) NEW Estimated Protein Required (g/day) 98 gm/day (1.2gm/kg CBW for surgical healing) NEW Estimated Fluid Required (l/day) 2.2 L/day (1 ml/kcal/day for maintenance) Problem/Etiology/Signs/Symptoms Increased nutritional needs related to metabolic demands as evidenced by estimated nutritional requirements for surgical healing. (*ongoing) Malnutrition r/t morbid obesity AEB BMI >40 kg/m2. (*new 03/13) Expected Outcomes/Goals - Monitor advancement of diet, appetite, and PO intakes w/ goal of pt meeting at least 50% of estimated nutritional needs, labs trending WNL, normal GI function, and skin integrity/wt maintenance Dietitian Recommendations * Advance diet to soft diet. Follow Up High Risk: F/U in 2-3days
[2020-03-13 15:26] VITALS: BP_SYST 136
[2020-03-13] MEDS: KCL 20 mEq in D5/0.45NS 1000mL 1,000 ML IV SCH (15:32)
--- NOTE | 2020-03-13 19:21 | NUR ---
Vomiting x1 today, bilious, green in color, large amount, patient stated he was nauseous after sitting up to use the restroom, Zofran IV administered at this time, will endorse to NOC shift nurse.
[2020-03-13 20:00] VITALS: BP_SYST 120
--- NOTE | 2020-03-13 20:15 | NUR ---
PM SHIFT ASSESSMENT Received report from day nurse, patient sitting up in bed, aox4, vital signs stable, on room air, vomited earlier, patient denies any nausea at this time, IV line to right ac intact and patent, IVF infusing, abdominal binder in place, two lorelei drains noted, patient's villar catheter secured and to gravity, draining urine, plan of care discussed with patient, verbalized understanding, oriented to call light for nurse assistance. Educated on use of incentive spirometer, patient able to inspire up to 1500ml. Patient compliant.
--- NOTE | 2020-03-13 21:37 | NUR ---
RN ROUNDS Patient sleeping, breathing is even and unlabored, ivf continues to infuse, call light within reach, fall and safety measures in place.
--- NOTE | 2020-03-13 22:22 | NUR ---
RN ROUNDS Patient continues to sleep, breathing is even and unlabored, easy to arouse, due antibiotics administered, IV line remains intact and patent. Call light within reach, safety measures in place.
[2020-03-14] MEDS: metroNIDAZOLE 500 mg/NS 100 ML IV SCH ×2 (00:08→09:34)
[2020-03-14 00:18] VITALS: BP_SYST 144
--- NOTE | 2020-03-14 00:22 | NUR ---
RN ROUNDS Patient continues to sleep, cpap in place, breathing is even and unlabored, vitals stable, due antibiotics administered, IV line remains intact and patent. Call light within reach, safety and fall measures in place.
--- NOTE | 2020-03-14 02:05 | NUR ---
RN ROUNDS Patient continues to sleep with cpap, breathing is even and unlabored, call light within reach, safety and fall measures in place.
--- NOTE | 2020-03-14 04:08 | NUR ---
RN ROUNDS Patient awake, assisted to bedside commode, no bowel movement, only passing gas, patient sitting up in chair, denies any pain or discomfort, call light within reach, safety and fall measures in place.
[2020-03-14] MEDS: PIPERACILLIN/TAZO 4.5GM/DEX-IS 100 ML IV SCH ×3 (05:03→22:16)
--- NOTE | 2020-03-14 06:03 | NUR ---
RN ROUNDS Patient sitting up in chair, denies any pain or discomfort, IV line remains intact and patent, due antibiotics administered, lorelei drains and vilalr catheter drained. Patient needs attended through out the shift, call light remains within reach, fall and safety measures maintained.
--- NOTE | 2020-03-14 07:15 | NUR ---
opening note received bedside sbar from night RN, patient in bed, respirations even, non labored, bed in low and locked position call light within reach
--- NOTE | 2020-03-14 07:15 | NUR ---
opening notes received bedside sbar from night rn, patient in bed, respirations even non labored, bed in low and locked position, call light within reach
[2020-03-14 08:00] VITALS: BP_SYST 140
--- NOTE | 2020-03-14 08:00 | NUR ---
nurse note obtained VS, patient in bed, no complaints of pain or discomfort, IVF's running as ordered, Sales draining by gravity, bed in low and locked position , call light within reach
--- NOTE | 2020-03-14 09:00 | NUR ---
nurse note patient sitting in chair bedside, complains that when he stands he leaks urine. assisted patient back to bed, denies any pain or discomfort.
[2020-03-14 09:09] LABS: EOSINOPHILS # (AUTO) 0.4 K/uL (0.0-0.4); LYMPHOCYTES # (AUTO) 2.1 K/uL (1.0-5.5); NEUTROPHILS # (AUTO) 6.6 K/uL (1.8-7.7)
[2020-03-14 09:18] LABS: BASOPHILS # (AUTO) 0.1 K/uL (0.0-0.2); CALCIUM 8.1 mg/dL (8.4-11.0); CREATININE 0.83 mg/dL (0.55-1.30); EOSINOPHILS % (AUTO) 4.4 % (0.0-4.0); HEMOGLOBIN 11.4 g/dL (14.0-18.0); LYMPHOCYTES % (AUTO) 20.4 % (20.5-51.5); MEAN CORPUSCULAR HEMOGLOBIN 31 pg (27-31); MEAN CORPUSCULAR HGB CONC 34 % (32-36); MEAN CORPUSCULAR VOLUME 91 fL (79.0-98.0); MONOCYTES # (AUTO) 0.8 K/uL (0.0-1.0); MONOCYTES % (AUTO) 8.3 % (1.7-9.3); NEUTROPHILS % (AUTO) 65.9 % (40.0-70.0); PLATELET COUNT (AUTO) 359 K/uL (130-430); POTASSIUM 3.5 mmol/L (3.5-5.1); RED BLOOD CELL COUNT(AUTO) 3.74 MIL/uL (4.2-6.2); RED CELL DISTRIBUTION WIDTH 13.7 % (9.0-15.0); WHITE BLOOD COUNT (AUTO) 10.1 K/uL (4.8-10.8)
[2020-03-14 09:26] VITALS: BP_SYST 144
--- NOTE | 2020-03-14 09:30 | NUR ---
Discharge Planning: DCP spoke to Marcelle at [facility] ([phone]) declined pt no coverage where patilennox lives. DCP lm for Saira at [facility] (f [phone] p [phone]) DCP faxed to [facility] ([phone]) DCP to follow up. Addendum: 03/14/20 at 1403 by Shannon Frye DP DCP spoke to [facility] she is aware [facility] ([phone]) accepted patient she will email Kenneth authormarshall. SUSANAP made CM and nurse aware.
[2020-03-14] MEDS: GABAPENTIN 300 MG CAPSULE PO SCH ×3 (09:33→20:23)
--- NOTE | 2020-03-14 11:00 | NUR ---
nurse note patient in bed, respirations even, non labored, bed in low and locked position, call light within reach,
[2020-03-14 12:00] VITALS: BP_SYST 140
--- NOTE | 2020-03-14 12:00 | NUR ---
nurse note charge loaderKim spoke with diana Diamond to adjust villar catheter.
--- NOTE | 2020-03-14 12:30 | NUR ---
nurse note cleansed dionne area, and penis, adjusted villar catheter, inflated balloon to correct amount, immediate return of urine, secured villar to leg. patient tolerated well
--- NOTE | 2020-03-14 13:00 | NUR ---
NURSE NOTE PATIENT CONTINUES TO COMPLAIN OF LEAKING OF URINE WHEN AMBULATING, PAGED DR. SAN
--- NOTE | 2020-03-14 13:46 | NUR ---
NURSE NOTE INFORMED DR SAN THAT ALONSO CONTINUES TO LEAK WHEN PATIENT AMBULATES, PER DR SAN, ASSESS WITH BLADDER SCAN, AND IRRIGATE ALONSO
[2020-03-14] MEDS: KCL 20 mEq in D5/0.45NS 1000mL 1,000 ML IV SCH (14:07)
--- NOTE | 2020-03-14 15:00 | NUR ---
NURSE NOTE ADMINISTERED MEDICATION, ASSESSED WITH BLADDER SCAN, 49ML NOTED, CLEANSED CATHETER, IRRIGATED ALONSO, THICK SEDIMENT DRAINED, AND ALONSO DRAINED FREELY TO BAG VIA GRAVITY, PATIENT DENIES ANY PAIN OR DISCOMFORT, TOLERATED PROCEDURE WELL, BED IN LOW AND LOCKED POSITION CALL LIGHT WITHIN REACH
[2020-03-14 16:03] VITALS: BP_SYST 142
--- NOTE | 2020-03-14 17:00 | NUR ---
NURSE NOTE PATIENT IN BED, RESPIRATIONS EVEN, NON LABORED, BED IN LOW AND LOCKED POSITION, CALL LIGHT WITHIN REACH, BED ALARM ON, IVF'S RUNNING ORDERED, ALONSO DRAINING BY GRAVITY, PATIENT DENIES ANY PAIN OR DISCOMFORT
--- NOTE | 2020-03-14 18:30 | NUR ---
nurse note assisted with patient ambulation, no leakage from villar, patient able to ambulate to the hallway and back, denies any pain, discomfort, or shortness of breath, returned patient to bed, bed in low and locked position, call light within reach
--- NOTE | 2020-03-14 19:10 | NUR ---
CLOSING NOTE PROVIDED BEDSIDE SBAR TO NIGHT RN, PATIENT IN BED, RESPIRATIONS EVEN, NON LABORED, BED IN LOW AND LOCKED POSITION CALL LIGHT WITHIN REACH, ALONSO DRAINING TO GRAVITY, IVF'S RUNNING ORDERED, WILMAN DRAINS EMPTIED, ENDORSED CARE TO NIGHT RN,
--- NOTE | 2020-03-14 19:40 | NUR ---
PM SHIFT ASSESSMENT Received report from day nurse, patient sitting up in bed, aox4, vital signs stable, on room air, patient denies any nausea or pain at this time, IV line to right ac intact and patent, IVF infusing, abd dressing and abdominal binder in place, two lorelei drains noted, patient's villar catheter secured and to gravity, draining urine, plan of care discussed with patient, verbalized understanding, oriented to call light for nurse assistance. Educated on use of incentive spirometer, patient able to inspire up to 2500ml. Patient compliant.
[2020-03-14 19:52] VITALS: BP_SYST 146
--- NOTE | 2020-03-14 22:00 | NUR ---
RN ROUNDS Patient resting quietly in bed, due medications and antibiotics administered, educated on use and side effects of the medications, IV line remains intact and patent. Call light within reach, safety measures in place.
[2020-03-15] MEDS: metroNIDAZOLE 500 mg/NS 100 ML IV SCH ×3 (00:12→17:01)
--- NOTE | 2020-03-15 00:30 | NUR ---
RN ROUNDS Patient sleeping, cpap in place, breathing is even and unlabored, vitals stable, due antibiotics administered, IV line remains intact and patent. Call light within reach, safety and fall measures in place.
--- NOTE | 2020-03-15 00:52 | NUR ---
CALLED A CONSULT FOR CALIN CHOWDHURY NO EXCHANGE SERVICE AVAILABLE LEFT A MESSAGE ON HIS ANSWERING MACHINE I WILL PASS IT TO MORNING SECRETAR TO FOLLOW UP IN THE MORNING
[2020-03-15 00:56] VITALS: BP_SYST 138
--- NOTE | 2020-03-15 02:03 | NUR ---
RN ROUNDS Patient sleeping with cpap in place, breathing is even and unlabored, call light within reach, safety and fall measures in place.
--- NOTE | 2020-03-15 04:15 | NUR ---
RN ROUNDS Patient sleeping remains on cpap, breathing is even and unlabored, IVF continues to infuse, call light within reach, safety measures in place.
[2020-03-15] MEDS: PIPERACILLIN/TAZO 4.5GM/DEX-IS 100 ML IV SCH ×4 (05:21→21:44)
--- NOTE | 2020-03-15 05:58 | NUR ---
MD/BLADDER SCAN Spoke to Dr. Collins, updated him on patients status, MD to see patient this am and to do bladder scan and irrigate villar. Bladder scan showed less than 100 ml of urine, patient does not feel and bladder pressure or discomfort, urine is yellow with no sediments.
[2020-03-15 08:00] VITALS: BP_SYST 125
[2020-03-15] MEDS: GABAPENTIN 300 MG CAPSULE PO SCH ×4 (08:41→21:44)
--- NOTE | 2020-03-15 09:20 | NUR ---
CONSULT UROLOGY URINARY LEAKAGE CALIN DELAROSA [phone] DR SCHAEFER IS AWARE AND HAS SEEN THE PATIENT
[2020-03-15 09:35] LABS: BASOPHILS # (AUTO) 0.1 K/uL (0.0-0.2); BASOPHILS % (AUTO) 0.8 % (0.0-2.0); EOSINOPHILS # (AUTO) 0.5 K/uL (0.0-0.4); HEMATOCRIT 32.2 % (36-54); HEMOGLOBIN 11.1 g/dL (14.0-18.0); LYMPHOCYTES # (AUTO) 2.3 K/uL (1.0-5.5); LYMPHOCYTES % (AUTO) 25.1 % (20.5-51.5); MEAN CORPUSCULAR HEMOGLOBIN 31 pg (27-31); MEAN CORPUSCULAR HGB CONC 34 % (32-36); MEAN CORPUSCULAR VOLUME 91 fL (79.0-98.0); MONOCYTES # (AUTO) 0.8 K/uL (0.0-1.0); MONOCYTES % (AUTO) 8.6 % (1.7-9.3); NEUTROPHILS # (AUTO) 5.5 K/uL (1.8-7.7); NEUTROPHILS % (AUTO) 60.5 % (40.0-70.0); PLATELET COUNT (AUTO) 379 K/uL (130-430); RED BLOOD CELL COUNT(AUTO) 3.55 MIL/uL (4.2-6.2); RED CELL DISTRIBUTION WIDTH 13.7 % (9.0-15.0)
[2020-03-15 09:41] LABS: CALCIUM 8.6 mg/dL (8.4-11.0); CREATININE 0.78 mg/dL (0.55-1.30); POTASSIUM 3.3 mmol/L (3.5-5.1)
[2020-03-15 12:29] VITALS: BP_SYST 153
--- NOTE | 2020-03-15 13:22 | NUR ---
Case mgt: S/W romelia Sharma coordinator at [facility] at [phone]--she is having FWW delivered to pt's bedside today. Nurse Sapp informed Home Health is arranged, we are waiting for dc order from -- RN
[2020-03-15] MEDS: HYDROcodone/ACETAMIN 5-325 MG TAB (NORCO/ VICODIN) PO PRN (16:10)
[2020-03-15 16:40] VITALS: BP_SYST 149
--- NOTE | 2020-03-15 17:34 | NUR ---
dr witt called Dr Witt via exchange to follow up updates re plan of care. waiting for MD to call back
--- NOTE | 2020-03-15 19:10 | NUR ---
Report received from day shift nurse. Pt is fully awake, alert and oriented x4. Pt denies pain or discomfort. IVF of D5 1/2NS W/ 20Meq KCL is infusing well via RAC at 40ml/hr without any signs of infiltration. Abdominal dressing is dry and intact with abdominal binder in place. Right and left WILMAN drains to bulb suction noted with small amount of serous drainage. Sales Cath to leg bag noted with clear yellowish urine. Fall and safety precautions are in place
[2020-03-15 20:00] VITALS: BP_SYST 144
--- NOTE | 2020-03-15 21:37 | NUR ---
Per Dr. Beltran, pt can be discharged tomorrow. Will notify pt.
--- NOTE | 2020-03-15 21:40 | NUR ---
Urinary drainage bag connected to pt's Sales cath per his request after he was informed he is not being discharged home today. Pt stated the leg bag fills up too quickly.
[2020-03-15] MEDS: MORPHINE 4 MG/ML INJ. SYRINGE IVP PRN (21:44)
--- NOTE | 2020-03-15 21:44 | NUR ---
Morphine 4mg given IV per pt's request for c/o 12/16 abdominal pain. Call light is with pt and bed alarm on. Pt was instructed to call for assistance before getting out of bed if he feels drowsy or dizzy and pt verbalized understanding.
--- NOTE | 2020-03-15 23:25 | NUR ---
Pt was placed on CPAP 5 by RT per pt's request. IVF is infusing well in [facility]. Call light is with pt and bed alarm is on.
[2020-03-15] MEDS: KCL 20 mEq in D5/0.45NS 1000mL 1,000 ML IV SCH (23:28)
[2020-03-16] MEDS: metroNIDAZOLE 500 mg/NS 100 ML IV SCH ×2 (00:46→08:40)
--- NOTE | 2020-03-16 00:46 | NUR ---
Pt is resting quietly in bed and remains on CPAP. No respiratory distress noted. IVF is infusing well in RAC. Call light is with pt and bed alarm is on.
[2020-03-16 01:45] VITALS: BP_SYST 147
[2020-03-16] MEDS: PIPERACILLIN/TAZO 4.5GM/DEX-IS 100 ML IV SCH ×2 (05:50→14:00)
--- NOTE | 2020-03-16 07:05 | NUR ---
Pt seen by Dr. Witt who removed both WILMAN drains and abdominal dressing. Midline incision intact with lisette in place.
[2020-03-16] MEDS ORDERED: HYDROcodone/ACETAMIN 5-325 MG TAB (NORCO/ VICODIN) PO PRN (07:30)
[2020-03-16 08:00] VITALS: BP_SYST 146
[2020-03-16] MEDS: GABAPENTIN 300 MG CAPSULE PO SCH ×2 (08:40→15:00)
[2020-03-16] MEDS: HYDROcodone/ACETAMIN 5-325 MG TAB (NORCO/ VICODIN) PO PRN (08:41)
--- NOTE | 2020-03-16 09:47 | NUR ---
DISCHARGE PLANNING Per pt's nurse, pt received fww & is being discharged today.
[2020-03-16 11:07] VITALS: BP_SYST 146
[2020-03-16] MEDS ORDERED: HYDR-4272 PO (11:15)
[2020-03-16] MEDS ORDERED: GABA-333 PO (11:15)
[2020-03-16] MEDS ORDERED: NEU300 PO (11:16)
[2020-03-16] MEDS ORDERED: IBUP-2018 PO (11:17)
[2020-03-16 13:24] VITALS: BP_SYST 150
--- NOTE | 2020-03-16 16:32 | NUR ---
PATIENT DISCHARGE INSTRUCTION PROVIDED TO PT NEW MEDICATION PX GIVEN DIET ACTIVITY MD FOLLOW UP PT VERBALIZED UNDERSTANDING WELL DRESSING F/CA IRRIGATION SUPPLIES PROVIDED ALL BELONGS RELEASED IV HELP LOCK REMOVED PATIENT DISCHARGED TO HOME WITH FAMILY MEMBER AT 1624
== END 2020-03-16 16:30 | disposition home health service (06) | DRG 230 ==
LOC: SED 01:49 → SMU 04:27 → SIC 19:48 → SMU 03-10 18:35 → STU 03-10 19:49 → SMU 03-13 10:34
PROVIDERS: ADMIT Surgery; ATTEND Surgery
PROC: 0WJG4ZZ Inspection of Peritoneal Cavity, Percutaneous Endoscopic Approach (ICD-10-PCS; 2020-03-08)
PROC: 0DQ80ZZ Repair Small Intestine, Open Approach (ICD-10-PCS; 2020-03-08)
PROC: 0TQB0ZZ Repair Bladder, Open Approach (ICD-10-PCS; 2020-03-08)
PROC: 5A09557 Assistance with Respiratory Ventilation, Greater than 96 Consecutive Hours, Continuous Positive Airway Pressure (ICD-10-PCS; 2020-03-08)
PROC: 0DTJ0ZZ Resection of Appendix, Open Approach (ICD-10-PCS; principal; 2020-03-08 13:30)
DX: K35.80 Unspecified acute appendicitis (principal); N31.2 Flaccid neuropathic bladder, not elsewhere classified; K66.0 Peritoneal adhesions (postprocedural) (postinfection); Z20.828 Contact with and (suspected) exposure to other viral communicable diseases; R65.11 Systemic inflammatory response syndrome (SIRS) of non-infectious origin with acute organ dysfunction
CPT/HCPCS: 36415; 71045; 80048; 80053; 81000-TC; 83605; 83690-TC; 85025; 87040-TC; 87081; 87086; 88304; 93005; 94010; 94660; 94760; 96361; 96374; 96375; 97110-GP; 97116-GP; 97530-GP; 99285; C1727; G0378; J0330; J1170; J1200; J1885; J2270; J2405; J2543; J2704; J3010; J3490; J7030; J7042; J7120

== ENCOUNTER 2020-03-18 23:56 | Inpatient (IN) | payer MEDICAID, SELFPAY ==
[~2020-03-18] VITALS: Ht 167.6 cm; Wt 131.5 kg
[~2020-03-18 23:56] MED LIST: HYDR-4272 PO; IBUP-2018 PO; NEU300 PO
[2020-03-19] VITALS (7 sets, daily range): BP systolic 119–160
--- NOTE | 2020-03-19 00:05 | NUR ---
PT TRIAGED IN HALLWAY. PT AWAITING FOR ER BED. IV PLACED 18G RIGHT AC.
--- NOTE | 2020-03-19 00:10 | NUR ---
PT ARRIVED BY WHEELCHAIR C/O NAUSEA AND VOMITING FOR THE PAST WEEK SINCE APPY SURGERY. PT IS PALE AND REPORTS 2/10 PAIN IN ABDOMEN. PT ALSO REPORTS GAS PAINS AND WEAKNESS.
--- NOTE | 2020-03-19 00:20 | NUR ---
ER Dr. CASTILLO at bedside examining patient.
[2020-03-19] MEDS ORDERED: NACL 0.9% 1,000 ML IV ONE (00:21)
--- NOTE | 2020-03-19 00:22 | NUR ---
Pt wheeled to bed 4 for evaluation
[2020-03-19] MEDS ORDERED: ONDANSETRON HCL 4 MG/2 ML VIAL IVP ONE ×2 (00:30→02:30)
[2020-03-19 00:35] LABS: NEUTROPHILS # (AUTO) 8.3 K/uL (1.8-7.7)
[2020-03-19 00:39] LABS: BASOPHILS # (AUTO) 0.1 K/uL (0.0-0.2); BASOPHILS % (AUTO) 1.1 % (0.0-2.0); EOSINOPHILS # (AUTO) 0.2 K/uL (0.0-0.4); EOSINOPHILS % (AUTO) 1.9 % (0.0-4.0); HEMATOCRIT 37.9 % (36-54); HEMOGLOBIN 13.1 g/dL (14.0-18.0); LYMPHOCYTES # (AUTO) 1.9 K/uL (1.0-5.5); LYMPHOCYTES % (AUTO) 17.3 % (20.5-51.5); MEAN CORPUSCULAR HEMOGLOBIN 31 pg (27-31); MEAN CORPUSCULAR HGB CONC 35 % (32-36); MEAN CORPUSCULAR VOLUME 90 fL (79.0-98.0); MONOCYTES # (AUTO) 0.6 K/uL (0.0-1.0); MONOCYTES % (AUTO) 5.6 % (1.7-9.3); NEUTROPHILS % (AUTO) 74.1 % (40.0-70.0); PLATELET COUNT (AUTO) 588 K/uL (130-430); RED BLOOD CELL COUNT(AUTO) 4.23 MIL/uL (4.2-6.2); WHITE BLOOD COUNT (AUTO) 11.1 K/uL (4.8-10.8)
[2020-03-19 00:50] LABS: CALCIUM 8.8 mg/dL (8.4-11.0); CREATININE 0.82 mg/dL (0.55-1.30); POTASSIUM 3.8 mmol/L (3.5-5.1)
[2020-03-19 00:53] LABS: PROTHROMBIN TIME 10.4 SECS (9.5-12.5)
[2020-03-19 00:56] LABS: ALBUMIN 3.3 g/dL (3.4-4.8); TOTAL BILIRUBIN 0.5 mg/dL (0.0-1.0)
--- NOTE | 2020-03-19 01:30 | NUR ---
VSS no s/s of acute distress Resting on gurney rails up
[2020-03-19] MEDS ORDERED: MORPHINE 2 MG/ML INJ. SYRINGE IVP ONE ×2 (01:45→02:30)
--- NOTE | 2020-03-19 02:40 | NUR ---
Dr. Rangel at bedside for pt update and re-eval
--- NOTE | 2020-03-19 03:45 | NUR ---
Pt back from Radiology in stable condition, well tolerated
[2020-03-19] MEDS ORDERED: KCL 20 mEq in D5NS 1000 mL 1,000 ML IV SCH (04:15)
[2020-03-19] MEDS ORDERED: PIPERACILLIN/TAZOBACTAM 4.5 GM/VIAL (ZOSYN) IV ONE (04:46)
--- NOTE | 2020-03-19 04:58 | NUR ---
Pt did not tolerate NG-Tube placement procedure, requested that retry would be attempted later
[2020-03-19] MEDS: PIPERACILLIN/TAZO 4.5 GM in NS 100 ML IV SCH ×3 (05:31→22:18)
--- NOTE | 2020-03-19 06:00 | NUR ---
Transfer to Tele via ACLS protocol. Licensed nurse present. IV present no signs or symptoms of infiltration.
--- NOTE | 2020-03-19 06:00 | NUR ---
Patient will be admitted to care of . Admitted to Tele unit. Will go to room 109C. Belongings list completed. Complete and up to date summary report printed. SBAR report to be given at bedside with opportunity for questions.
--- NOTE | 2020-03-19 06:17 | NUR ---
ADMIT NOTE Received pt from ER to the floor with a diagnosis of bowel obstruction. Admission process initiated. patient oriented to pain management, safety and call light-teach back done.
[2020-03-19] MEDS: D5NS 1,000 ML IV SCH ×3 (07:01→18:12)
--- NOTE | 2020-03-19 07:30 | NUR ---
OPENING NOTES: RECEIVED PATIENT FROM AUTOMATION MECHANIC NURSE. PATIENT IS ASLEEP LAYING DOWN IN BED. PATIENT AWAKES WITH VERBAL STIMULI. PATIENT DENIES ANY PAIN AT THE MOMENT. PATIENT IS TOLERATING OXYGEN ON ROOM AIR WITH NO SIGNS OF DISTRESS OR SHORTNESS OF BREATH NOTED. IV SITE IS PATENT WITH NO SIGNS OF INFILTRATION NOTED AND RUNNING FLUIDS ORDERED. ALONSO CATHETER INTACT AND DRAINING BY GRAVITY. PATIENT IN STABLE CONDITION. SAFETY, FALL, AND ASPIRATION PRECAUTIONS ARE IN PLACE. BED LOCKED IN LOWEST POSITION WITH CALL LIGHT IN REACH. WILL CONTINUE TO MONITOR PATIENT FOR ANY CHANGES.
[2020-03-19] MEDS: ENOXAPARIN SODIUM 40 MG/0.4 ML SYRINGE SUBCUT SCH (08:18)
--- NOTE | 2020-03-19 08:56 | NUR ---
ATTENDING MD DR Miller OH WAS CALLED, RE: REQUEST OF PT FOR A CPAP. SPOKE TO
--- NOTE | 2020-03-19 08:56 | NUR ---
CALLED: DR. LEMUS CALLED BACK. RECEIVED NEW ORDER FOR CPAP.
--- NOTE | 2020-03-19 10:35 | NUR ---
RN ROUNDS: PATIENT IS ASLEEP LAYING DOWN IN BED. PATIENT IS CURRENTLY ON CPAP AND TOLERATING IT WELL. IV SITE IS PATENT WITH NO SIGNS OF INFILTRATION NOTED AND RUNNING FLUIDS ORDERED. PATIENT IN STABLE CONDITION. WILL CONTINUE TO MONITOR PATIENT FOR ANY CHANGES.
--- NOTE | 2020-03-19 12:13 | NUR ---
RN ROUNDS: PATIENT IS ASLEEP LAYING DOWN IN BED. PATIENT IS ON CPAP AND TOLERATING IT WELL. IV SITE IS PATENT WITH NO SIGNS OF INFILTRATION NOTED. PATIENT IN STABLE CONDITION. WILL CONTINUE TO MONITOR PATIENT FOR ANY CHANGES.
--- NOTE | 2020-03-19 13:30 | NUR ---
FAMILY CALLED: SPOKE WITH MOTHER SHADIA AND GAVE HER UPDATES ON HER SON. ANSWERED QUESTIONS TO THE BEST OF MY ABILITY. INFORMED HER THAT HE IS SLEEPING AT THE MOMENT AND ONCE HE WAKES UP I WILL LET HIM KNOW THAT SHE CALLED. WILL KEPP HER UPDATED.
--- NOTE | 2020-03-19 14:45 | NUR ---
RN ROUNDS: PATIENT IS ASLEEP LAYING DOWN IN BED. PATIENT AWAKES WITH VERBAL STIMULI. PATIENT DENIES ANY PAIN AT THE MOMENT. PATIENT IS TOLERATING WEARING HIS CPAP MACHINE. IV SITE IS PATENT WITH NO SIGNS OF INFILTRATION NOTED. PATIENT IN STABLE CONDITION. WILL CONTINUE TO MONITOR PATIENT FOR ANY CHANGES.
--- NOTE | 2020-03-19 16:28 | NUR ---
RN ROUNDS: PATIENT IS ASLEEP LAYING DOWN IN BED. PATIENT IS TOLERATING HIS CPAP MACHINE. IV SITE IS PATENT WITH NO SIGNS OF INFILTRATION NOTED. ALONSO INTACT AND DRAINING BY GRAVITY. PATIENT IN STABLE CONDITION. WILL CONTINUE TO MONITOR PATIENT FOR ANY CHANGES.
--- NOTE | 2020-03-19 18:26 | NUR ---
CLOSING NOTES: PATIENT IS AWAKE AND ALERT x4 LAYING DOWN IN BED. PATIENT DENIES ANY PAIN AT THE MOMENT. PATIENT IS TOLERATING OXYGEN ON ROOM AIR WITH NO SIGNS OF DISTRESS OR SHORTNESS OF BREATH NOTED. IV SITE IS PATENT WITH NO SIGNS OF INFILTRATION NOTED AND RUNNING FLUIDS ORDERED. ALONSO CATHETER INTACT AND DRAINING BY GRAVITY. PATIENT IN STABLE CONDITION. SAFETY, FALL, AND ASPIRATION PRECAUTIONS REMAINED IN PLACE THROUGHOUT THE SHIFT. BED LOCKED IN LOWEST POSITION WITH CALL LIGHT IN REACH. WILL ENDORSE PATIENT CARE TO ONCOMING TEARER PRESS CLIPPING NURSE.
--- NOTE | 2020-03-19 20:00 | NUR ---
Pt A/O x4. No distress noted or reported. Pt denied any pain or discomfort at this time. Noted lisette to abd. Incision clean and dry. Abd binder reapplied after assessment. Hypoactive bowel sounds. VS stable. F/C draining cloudy urine to gravity with noted sediment. IVF infusing at 150 ml/h. See eMAR. All safety precautions in place. Monitoring continued.
--- NOTE | 2020-03-19 21:00 | NUR ---
Pt reported sharp pain in bladder area related to clogged F/C. Bladder irrigated with 60 ml NS x2. Pt expressed immediate relief. Monitoring continued.
--- NOTE | 2020-03-19 21:20 | NUR ---
Pt reported abd discomfort and bloating. Accompanied pt ambulated with FWW. Pt began to belch. And reported relief of symptoms after ambulation and belching.
--- NOTE | 2020-03-19 21:22 | NUR ---
PAGED PAGED DOCTOR OH,A
[2020-03-19] MEDS: MORPHINE 4 MG/ML INJ. SYRINGE IVP PRN (22:16)
--- NOTE | 2020-03-19 22:16 | NUR ---
Pt reported dull left abd pain of level 7/10. Morphine 4 mg administered IVP per MD PRN order. Will reassess. Addendum: 03/20/20 at 0609 by [facility] eight shift supervisor film processing Pt reported dull left abd pain of level 7/10. RT here to apply CPAP. CPAP on and functioning. Morphine 4 mg administered IVP per MD PRN order. Will reassess.
--- NOTE | 2020-03-19 22:46 | NUR ---
No reports of any pain or discomfort at this time. Pt appears asleep. Monitoring continued.
[2020-03-20] VITALS: BP_SYST 122
[2020-03-20] MEDS: HYDROmorphone 1 MG INJ. 1 MG/ML AMPUL IVP PRN ×2 (01:14→05:36)
--- NOTE | 2020-03-20 01:14 | NUR ---
Pt reported dull left abd pain of level 7/10. Dilaudid 1 mg administered IVP per MD PRN order. Will reassess.
--- NOTE | 2020-03-20 01:44 | NUR ---
No reports of any pain or discomfort at this time. Pt appears asleep. Monitoring continued.
[2020-03-20] MEDS: D5NS 1,000 ML IV SCH ×3 (02:10→13:57)
[2020-03-20] MEDS: MORPHINE 4 MG/ML INJ. SYRINGE IVP PRN ×2 (03:32→08:43)
--- NOTE | 2020-03-20 03:32 | NUR ---
Pt reported dull left abd pain of level 7/10. Morphine 4 mg administered IVP per MD PRN order. Will reassess.
--- NOTE | 2020-03-20 04:02 | NUR ---
No reports of any pain or discomfort at this time. Pt appears asleep. Monitoring continued.
--- NOTE | 2020-03-20 05:36 | NUR ---
Pt reported dull left abd pain of level 7/10. Dilaudid 1 mg administered IVP per MD PRN order. Will reassess.
[2020-03-20] MEDS: PIPERACILLIN/TAZO 4.5 GM in NS 100 ML IV SCH ×3 (05:37→21:12)
[2020-03-20 05:40] VITALS: BP_SYST 119
--- NOTE | 2020-03-20 06:06 | NUR ---
No reports of any pain or discomfort at this time. Pt appears asleep. Monitoring continued.
--- NOTE | 2020-03-20 07:19 | NUR ---
Nutrition Update Carlos Scale 18 noted. Pt admitted for Bowel obstruction Diet: NPO BMI: 50.1 kg/m2 RD to follow per nutrition care standards.
--- NOTE | 2020-03-20 07:30 | NUR ---
OPENING NOTES: RECEIVED PATIENT FROM RESCUE WORKER NURSE. PATIENT IS ASLEEP LAYING DOWN IN BED. PATIENT AWAKES WITH VERBAL STIMULI. PATIENT ASKED TO BE REPOSITIONED. ASSISTED PATIENT IN BEING REPOSITIONED TO HIS SIDE. PATIENT TOLERATED IT WELL. PATIENT CURRENTLY HAS HIS CPAP ON SO HE CAN SLEEP. IV SITE IS PATENT WITH NO SIGNS OF INFILTRATION NOTED AND RUNNING FLUIDS ORDERED. ALONSO CATHETER INTACT AND DRAINING BY GRAVITY. PATIENT IN STABLE CONDITION. SAFETY, FALL, AND ASPIRATION PRECAUTIONS ARE IN PLACE. BED LOCKED IN LOWEST POSITION WITH CALL LIGHT IN REACH. WILL CONTINUE TO MONITOR PATIENT FOR ANY CHANGES.
[2020-03-20 08:00] VITALS: BP_SYST 114
--- NOTE | 2020-03-20 08:43 | NUR ---
PRN PAIN MED: PATIENT COMPLAINED OF LEFT SIDED ABDOMINAL PAIN 6/10. PRN MORPHINE GIVEN TO PATIENT. PATIENT TOLERATED IT WELL. WILL REASSESS PATIENT.
[2020-03-20] MEDS: ENOXAPARIN SODIUM 40 MG/0.4 ML SYRINGE SUBCUT SCH (08:46)
--- NOTE | 2020-03-20 09:30 | NUR ---
MD ROUNDS: DR. SAN MAKING HIS ROUNDS. AWARE OF PATIENT'S CONDITION. NEW ORDERS FOR CLEAR LIQUID GIVEN. WILL FOLLOW THROUGH WITH ORDERS.
--- NOTE | 2020-03-20 10:16 | NUR ---
RN ROUNDS: PATIENT IS ASLEEP LAYING DOWN IN BED. PATIENT AWAKES WITH VERBAL STIMULI. PATIENT STATES HIS PAIN IS UNDER CONTROL AT THE MOMENT. INFORMED PATIENT TO LET ME KNOW WHEN HE BEGINS TO FEEL THE PAIN AGAIN. PATIENT IS CURRENTLY ON HIS CPAP AND TOLERATING IT WELL. IV FLUIDS ARE RUNNING AND IV SITE IS PATENT. ALONSO INTACT AND DRAINING BY GRAVITY. PATIENT IN STABLE CONDITION. WILL CONTINUE TO MONITOR PATIENT FOR ANY CHANGES.
[2020-03-20 12:00] VITALS: BP_SYST 126
--- NOTE | 2020-03-20 12:16 | NUR ---
RN ROUNDS: PATIENT IS AWAKE AND ALERT x4 LAYING DOWN IN BED. PATIENT IS TOLERATING OXYGEN ON ROOM AIR WITH NO SIGNS OF DISTRESS OR SHORTNESS OF BREATH NOTED. PATIENT DENIES ANY PAIN AT THE MOMENT. PATIENT WAS GIVEN HIS LUNCH TRAY. INFORMED PATIENT TO TAKE IT SLOW AND INFORM ME IF HE FEELS NAUSEOUS AT ANY MOMENT. PATIENT VERBALIZED UNDERSTANDING. PATIENT IN STABLE CONDITION. WILL CONTINUE TO MONITOR PATIENT FOR ANY CHANGES.
--- NOTE | 2020-03-20 14:36 | NUR ---
RN ROUNDS: PATIENT IS AWAKE AND ALERT x4 LAYING DOWN IN BED. PATIENT IS TOLERATING OXYGEN ON ROOM AIR WITH NO SIGNS OF DISTRESS OR SHORTNESS OF BREATH NOTED. PATIENT WAS ASSISTED OUT OF BED TO WALK AROUND. PATIENT HAD 2 BOWEL MOVEMENTS. PATIENT ASSISTED BACK INTO BED. PATIENT TOLERATED IT WELL. PATIENT DENIES ANY PAIN AT THE MOMENT. ALONSO CATHETER INTACT AND DRAINING BY GRAVITY. PATIENT IN STABLE CONDITION. WILL CONTINUE TO MONITOR PATIENT FOR ANY CHANGES.
[2020-03-20 16:00] VITALS: BP_SYST 131
--- NOTE | 2020-03-20 16:17 | NUR ---
RN ROUNDS: PATIENT IS AWAKE AND ALERT x4 LAYING DOWN IN BED. PATIENT IS TOLERATING OXYGEN ON ROOM AIR WITH NO SIGNS OF DISTRESS OR SHORTNESS OF BREATH NOTED. IV SITE IS PATENT WITH NO SIGNS OF INFILTRATION NOTED. PATIENT DENIES ANY PAIN AT THE MOMENT. PATIENT IN STABLE CONDITION. WILL CONTINUE TO MONITOR PATIENT FOR ANY CHANGES.
--- NOTE | 2020-03-20 18:45 | NUR ---
CLOSING NOTES: PATIENT IS AWAKE AND ALERT x4. PATIENT WAS ASSISTED TO AND FROM THE RESTROOM. PATIENT TOLERATED IT WELL. PATIENT DENIES ANY PAIN AT THE MOMENT. PATIENT IS TOLERATING OXYGEN ON ROOM AIR WITH NO SIGNS OF DISTRESS OR SHORTNESS OF BREATH NOTED. IV SITE IS PATENT WITH NO SIGNS OF INFILTRATION NOTED AND RUNNING FLUIDS ORDERED. ALONSO CATHETER INTACT AND DRAINING BY GRAVITY. PATIENT IN STABLE CONDITION. SAFETY, FALL, AND ASPIRATION PRECAUTIONS REMAINED IN PLACE THROUGHOUT THE SHIFT. BED LOCKED IN LOWEST POSITION WITH CALL LIGHT IN REACH. WILL ENDORSE PATIENT CARE TO ONCOMING ROPER OPERATOR NURSE.
--- NOTE | 2020-03-20 19:30 | NUR ---
Report received from day shift nurse. Pt is fully awake, alert and oriented x4. Pt denies pain or discomfort at this time. Pt is on room air and no respiratory distress noted. Midline abdominal incision with lisette in place is intact and open to air. No drainage or odor noted from the incision. Abdominal binder is in place. Sales catheter to gravity drainage noted with colored urine. IVF of D5NS is infusing well in RAC at 150ml/hr without any signs of infiltration. Fall and safety precautions are in place.
[2020-03-20 20:00] VITALS: BP_SYST 143
--- NOTE | 2020-03-20 22:20 | NUR ---
Pt incontinent of six greenish watery and foul smelling stools since 1900 today. Stool sample collected and sent to the lab for C-Diff as ordered by Dr. Derick Witt. Pt has received dionne care after each loose stool, followed by Z guard to pt's rectal area and buttocks.
--- NOTE | 2020-03-20 23:00 | NUR ---
Pt incontinent of three additional watery and foul smelling greenish stools. Marilee care given, followed by application of Z guard cream. Pt stated he is able to get out of bed, but he is unable to hold the bowel movement before getting out of bed. Fall and safety precautions are in place.
--- NOTE | 2020-03-20 23:50 | NUR ---
Pt incontinent of another watery and foul smelling greenish stool, #10 this shift. Marilee care given by PRODUCT PROMOTER RETAIL PET, followed by application of Z guard cream to pt's rectal area and buttocks. Pt stated it was too late for him to use BSC or bedpan. Fall and safety precautions are in place.
[2020-03-21] VITALS: BP_SYST 128
[2020-03-21] MEDS: D5NS 1,000 ML IV SCH ×4 (00:01→15:37)
--- NOTE | 2020-03-21 01:10 | NUR ---
Pt incontinent of bowel movement #11 this shift. Stool was large, watery, greenish and foul smelling. Marilee care given and Z guard applied to pt's bottom.
--- NOTE | 2020-03-21 01:35 | NUR ---
Pt was placed on CPAP 5 and FIO2 25% by RT per pt's request. IVF is infusing well in [facility]. Call light is with pt and bed alarm is on.
--- NOTE | 2020-03-21 03:15 | NUR ---
Pt incontinent of #12 watery and foul smelling greenish stool. Marilee care given by TICKET ATTENDANT, followed by application of Z guard cream to pt's bottom. IVF is infusing well in R[facility]. Fall and safety precautions are in place. Call light is with pt and bed alarm is on.
--- NOTE | 2020-03-21 04:30 | NUR ---
Pt is sleeping comfortably with CPAP on and no respiratory distress noted. IVF is infusing well in [facility]. Call light is with pt and bed alarm is on.
--- NOTE | 2020-03-21 05:40 | NUR ---
Pt incontinent of #13 watery and foul smelling greenish stool. Marilee care given by LIBRARY INFORMATION TECHNICIAN and RN, followed by application of Z guard cream to pt's bottom. No c/o pain or discomfort at this time. Fall and safety precautions are in place. Call light is with pt and bed alarm is on.
[2020-03-21] MEDS: PIPERACILLIN/TAZO 4.5 GM in NS 100 ML IV SCH ×3 (05:45→22:28)
--- NOTE | 2020-03-21 06:45 | NUR ---
Pt is sleeping comfortably in bed with CPAP on. IVF is infusing well in [facility]. Call light is with pt and bed alarm is on.
[2020-03-21 07:16] LABS: BASOPHILS # (AUTO) 0.1 K/uL (0.0-0.2); EOSINOPHILS # (AUTO) 0.2 K/uL (0.0-0.4); EOSINOPHILS % (AUTO) 2.7 % (0.0-4.0); HEMOGLOBIN 11.6 g/dL (14.0-18.0); LYMPHOCYTES # (AUTO) 1.3 K/uL (1.0-5.5); MEAN CORPUSCULAR HEMOGLOBIN 31 pg (27-31); MEAN CORPUSCULAR HGB CONC 34 % (32-36); MEAN CORPUSCULAR VOLUME 91 fL (79.0-98.0); MONOCYTES # (AUTO) 0.5 K/uL (0.0-1.0); MONOCYTES % (AUTO) 6.8 % (1.7-9.3); NEUTROPHILS # (AUTO) 4.8 K/uL (1.8-7.7); NEUTROPHILS % (AUTO) 70.5 % (40.0-70.0); PLATELET COUNT (AUTO) 514 K/uL (130-430); RED BLOOD CELL COUNT(AUTO) 3.74 MIL/uL (4.2-6.2); RED CELL DISTRIBUTION WIDTH 13.6 % (9.0-15.0); WHITE BLOOD COUNT (AUTO) 6.8 K/uL (4.8-10.8)
--- NOTE | 2020-03-21 07:30 | NUR ---
OPENING NOTES: RECEIVED PATIENT FROM VICE PRESIDENT INVESTOR RELATIONS NURSE. PATIENT IS AWAKE AND ALERT x4 LAYING DOWN IN BED. PATIENT STATED HE CALLED AN HOUR AGO TO BE CHANGED AND NO ONE CAME. CLEANED, CHANGED AND REPOSITIONED PATIENT FOUR TIMES WHILE BEING IN THE ROOM. PATIENT TOLERATED IT WELL. PATIENT DENIES ANY PAIN AT THE MOMENT. IV SITE IS PATENT WITH NO SIGNS OF INFILTRATION NOTED AND RUNNING FLUIDS ORDERED. ALONSO CATHETER INTACT AND DRAINING BY GRAVITY. PATIENT IN STABLE CONDITION. SAFETY, FALL, AND ASPIRATION PRECAUTIONS ARE IN PLACE. BED LOCKED IN LOWEST POSITION WITH CALL LIGHT IN REACH. WILL CONTINUE TO MONITOR PATIENT FOR ANY CHANGES.
[2020-03-21 07:41] LABS: CALCIUM 7.7 mg/dL (8.4-11.0); CREATININE 0.65 mg/dL (0.55-1.30); POTASSIUM 3.7 mmol/L (3.5-5.1)
--- NOTE | 2020-03-21 08:00 | NUR ---
RT NOTES Pt already off bipap, no distress noted.
[2020-03-21] MEDS: ENOXAPARIN SODIUM 40 MG/0.4 ML SYRINGE SUBCUT SCH (08:01)
[2020-03-21 08:22] VITALS: BP_SYST 141
--- NOTE | 2020-03-21 10:20 | NUR ---
RN ROUNDS: PATIENT IS AWAKE AND ALERT x4. PATIENT DENIES ANY PAIN AT THE MOMENT. PATIENT IS TOLERATING OXYGEN ON ROOM AIR WITH NO SIGNS OF DISTRESS OR SHORTNESS OF BREATH NOTED. PATIENT STATES HIS BLADDER FEELS PRESSURE. IRRIGATED ALONSO. PATIENT EXPRESSED A LITTLE RELIEF. PATIENT HAD A BOWEL MOVEMENT. PATIENT WAS CLEANED, CHANGED AND REPOSITIONED AND TOLERATED IT WELL. PATIENT IN STABLE CONDITION. WILL CONTINUE TO MONITOR PATIENT FOR ANY CHANGES.
[2020-03-21 11:27] VITALS: BP_SYST 144
--- NOTE | 2020-03-21 12:15 | NUR ---
RN ROUNDS: PATIENT IS AWAKE AND ALERT x4 LAYING DOWN IN BED. PATIENT STATES HE FEELS A LOT OF PRESSURE FROM THE ALONSO. IRRIGATED ALONSO AND RECEIVED 1,000 OUTPUT. PATIENT IMMEDIATELY FELT RELIEF. INFORMED PATIENT IF HE STARTS TO FEEL THE PRESSURE AGAIN TO LET ME KNOW. PATIENT VERBALIZED UNDERSTANDING. PATIENT WAS CHANGED, CLEANED AND REPOSITIONED. PATIENT TOLERATED IT WELL. NO PAIN AT THE MOMENT. PATIENT IN STABLE CONDITION. WILL CONTINUE TO MONITOR PATIENT FOR ANY CHANGES.
--- NOTE | 2020-03-21 14:15 | NUR ---
RN ROUNDS: PATIENT IS AWAKE AND ALERT x4 LAYING DOWN IN BED. PATIENT DENIES ANY PAIN AT THE MOMENT. PATIENT CALLED TO BE CHANGED. PATIENT CLEANED, CHANGED AND REPOSITIONED. PATIENT TOLERATED IT WELL. ALONSO EMPTIED. PATIENT IN STABLE CONDITION. WILL CONTINUE TO MONITOR PATIENT FOR ANY CHANGES.
--- NOTE | 2020-03-21 15:49 | NUR ---
MD ROUNDS: DR. SAN MAKING HIS ROUNDS. AWARE OF PATIENT'S CONDITION. NEW ORDERS FOR SOFT DIET, DC TELE, AND DECREASE IV FLUIDS GIVEN. WILL FOLLOW THROUGH WITH ORDERS.
--- NOTE | 2020-03-21 16:00 | NUR ---
RN ROUNDS: PATIENT IS AWAKE AND ALERT x4 LAYING DOWN IN BED. PATIENT IS TOLERATING OXYGEN ON ROOM AIR WITH NO SIGNS OF DISTRESS OR SHORTNESS OF BREATH NOTED. IVF DECREASED. PATIENT TAKEN OFF TELEMETRY. PATIENT CHECKED TO SEE IF HE WAS SOILED. NO NEED TO CHANGE PATIENT AT THIS TIME. PATIENT IN STABLE CONDITION. WILL CONTINUE TO MONITOR PATIENT FOR ANY CHANGES.
[2020-03-21 16:28] VITALS: BP_SYST 150
--- NOTE | 2020-03-21 18:40 | NUR ---
CLOSING NOTES: PATIENT IS AWAKE AND ALERT x4 LAYING DOWN IN BED. PATIENT SOILED. CLEANED, CHANGED AND REPOSITIONED PATIENT. PATIENT TOLERATED IT WELL. PATIENT DENIES ANY PAIN AT THE MOMENT. IV SITE IS PATENT WITH NO SIGNS OF INFILTRATION NOTED AND RUNNING FLUIDS ORDERED. ALONSO CATHETER INTACT AND DRAINING BY GRAVITY. PATIENT IN STABLE CONDITION. SAFETY, FALL, AND ASPIRATION PRECAUTIONS REMAINED IN PLACE THROUGHOUT THE SHIFT. BED LOCKED IN LOWEST POSITION WITH CALL LIGHT IN REACH. WILL ENDORSE PATIENT CARE TO ONCOMING LAUNDRY MACHINE MECHANIC NURSE. Addendum: 03/22/20 at 1849 by Mary Ann Betancur RN LATE ENTRY FOR 03/21/2020 1920: PATIENT WAS ASSISTED TO SITE AT THE SIDE OF THE BED. PATIENT FELT NAUSEOUS. PATIENT VOMITED 400ML OF GREEN BILE AND HAD A BOWEL MOVEMENT AT THE SAME TIME.
--- NOTE | 2020-03-21 19:30 | NUR ---
OPENING NOTE RECEIVED PATIENT FROM DAY SHIFT RN. PATIENT IS AWAKE AND ALERT x4, RESTING IN BED. PATIENT DENIES ANY PAIN AT THE MOMENT. IV SITE IS PATENT WITH NO SIGNS OF INFILTRATION NOTED, IVF RUNNING AT ORDERED RATE. ALONSO CATHETER INTACT AND DRAINING BY GRAVITY. PATIENT IN STABLE CONDITION. SAFETY, FALL, AND ASPIRATION PRECAUTIONS ARE IN PLACE. BED LOCKED IN LOWEST POSITION WITH CALL LIGHT IN REACH. WILL CONTINUE TO MONITOR PATIENT FOR ANY CHANGES.
[2020-03-21 20:00] VITALS: BP_SYST 135
[2020-03-21] MEDS: MORPHINE 4 MG/ML INJ. SYRINGE IVP PRN (22:28)
--- NOTE | 2020-03-21 22:28 | NUR ---
Paged Dr. Beltran s/w Vibha
--- NOTE | 2020-03-21 22:42 | NUR ---
PHYSICIAN CALL SPOKE TO DR. LEMUS REGARDING PT'S REPORT OF NAUSEA. NEW ORDER RECEIVED BY PRIMARY RN, JAMES. WILL IMPLEMENT.
[2020-03-21] MEDS ORDERED: ONDANSETRON HCL 4 MG/2 ML VIAL IVP PRN (22:45)
[2020-03-22] MEDS: MORPHINE 4 MG/ML INJ. SYRINGE IVP PRN (00:58)
--- NOTE | 2020-03-22 00:58 | NUR ---
PAIN/MORPHINE PATIENT REPORTING MODERATE PAIN TO ABDOMEN. MORPHINE GIVEN ORDERED PRN FOR MODERATE PAIN. MEDICATION ACTIONS AND POTENTIAL SIDE EFFECTS DISCUSSED WITH PATIENT, PATIENT VERBALIZED UNDERSTANDING. NO S/S OF ADVERSE REACTION NOTED. SAFETY PRECAUTIONS MAINTAINED. WILL MONITOR.
[2020-03-22] MEDS: PIPERACILLIN/TAZO 4.5 GM in NS 100 ML IV SCH (05:31)
[2020-03-22] MEDS: D5NS 1,000 ML IV SCH ×2 (05:38→19:55)
[2020-03-22 06:57] VITALS: BP_SYST 130
--- NOTE | 2020-03-22 07:30 | NUR ---
OPENING NOTES: RECEIVED PATIENT FROM INFORMATICA ARCHITECT NURSE. PATIENT IS ASLEEP LAYING DOWN IN BED. NO SIGNS OF DISTRESS OR SHORTNESS OF BREATH NOTED. IV SITE IS PATENT WITH NO SIGNS OF INFILTRATION NOTED AND RUNNING FLUIDS ORDERED. ALONSO CATHETER INTACT AND DRAINING BY GRAVITY. PATIENT IN STABLE CONDITION. SAFETY, FALL, AND ASPIRATION PRECAUTIONS ARE IN PLACE. BED LOCKED IN LOWEST POSITION WITH CALL LIGHT IN REACH. WILL CONTINUE TO MONITOR PATIENT FOR ANY CHANGES.
--- NOTE | 2020-03-22 07:50 | NUR ---
RT NOTES Pt remains on bipap, still sleeping @0900 pt is awake, off of bipap. no SOB noted
[2020-03-22 08:00] VITALS: BP_SYST 123
[2020-03-22] MEDS: ENOXAPARIN SODIUM 40 MG/0.4 ML SYRINGE SUBCUT SCH (08:07)
[2020-03-22] MEDS ORDERED: CYSTOGRAFIN 300 ML INFUS..BTL UR ONE (09:15)
--- NOTE | 2020-03-22 10:15 | NUR ---
RN ROUNDS: PATIENT IS AWAKE AND ALERT x4 LAYING DOWN IN BED. PATIENT ASSISTED UP OUT OF BED. PATIENT TOLERATED IT WELL. PATIENT RECONNECTED TO IV FLUIDS. PATIENT IN STABLE CONDITION. WILL CONTINUE TO MONITOR PATIENT FOR ANY CHANGES.
--- NOTE | 2020-03-22 12:24 | NUR ---
RN ROUNDS/MD ROUNDS: PATIENT IS AWAKE AND ALERT x4 LAYING DOWN IN BED. PATIENT WAS CLEANED AND CHANGED TWICE. PATIENT TOLERATED IT WELL. DR. SAN MAKING HIS ROUNDS. AWARE OF PATIENT'S CONDITION. NEW ORDERS TO STOP ZOSYN AND FOR A CONSULT WERE GIVEN. WILL FOLLOW THROUGH WITH ORDERS. PATIENT IN STABLE CONDITION. WILL CONTINUE TO MONITOR PATIENT FOR ANY CHANGES.
[2020-03-22 12:41] VITALS: BP_SYST 126
--- NOTE | 2020-03-22 12:56 | NUR ---
CONSULTATION PAGED/CALLED Reason for Consultation: BLADDER INJURY Person Who was Notified: MARY LOU Consulting Physician: CALIN SCHAEFER Ordering Physician: MENA
--- NOTE | 2020-03-22 14:39 | NUR ---
Dietitian Recommendations * Recommend soft (low fiber/bland) diet w/ Ensure Enlive BID, Banatrol BID (prebiotic powder) (ONS provides 700 kcal/day, 40 gm protein/day) HAILEE CUEVA Please refer to Nutrition Assessment for details. Addendum: 03/22/20 at [address] Amended: Links added.
--- NOTE | 2020-03-22 14:56 | NUR ---
RN ROUNDS: PATIENT IS AWAKE AND ALERT x4 LAYING DOWN IN BED. PATIENT WAS CLEANED, CHANGED AND REPOSITIONED. PATIENT TOLERATED IT WELL. PATIENT TOLERATING OXYGEN ON ROOM AIR WITH NO SIGNS OF DISTRESS OR SHORTNESS OF BREATH NOTED. PATIENT IN STABLE CONDITION. WILL CONTINUE TO MONITOR PATIENT FOR ANY CHANGES.
--- NOTE | 2020-03-22 16:45 | NUR ---
RN ROUNDS: PATIENT IS AWAKE AND ALERT x4 LAYING DOWN IN BED. PREPARATION DEPARTMENT SUPERVISOR AT BEDSIDE CHANGING PATIENT. PATIENT IS TOLERATING OXYGEN ON ROOM AIR WITH NO SIGNS OF DISTRESS OR SHORTNESS OF BREATH NOTED. IV SITE IS PATENT WITH NO SIGNS OF INFILTRATION NOTED. PATIENT IN STABLE CONDITION. WILL CONTINUE TO MONITOR PATIENT FOR ANY CHANGES.
[2020-03-22 16:54] VITALS: BP_SYST 127
--- NOTE | 2020-03-22 18:45 | NUR ---
CLOSING NOTES: PATIENT IS ASLEEP LAYING DOWN IN BED. PATIENT DENIES ANY PAIN AT THE MOMENT. IV SITE IS PATENT WITH NO SIGNS OF INFILTRATION NOTED AND RUNNING FLUIDS ORDERED. ALONSO CATHETER INTACT AND DRAINING BY GRAVITY. PATIENT IN STABLE CONDITION. SAFETY, FALL, AND ASPIRATION PRECAUTIONS REMAINED IN PLACE THROUGHOUT THE SHIFT. BED LOCKED IN LOWEST POSITION WITH CALL LIGHT IN REACH. WILL ENDORSE PATIENT CARE TO ONCOMING SENIOR MEDICAL BILLING SPECIALIST NURSE.
[2020-03-22 20:00] VITALS: BP_SYST 130
--- NOTE | 2020-03-22 21:20 | NUR ---
RN NOTE: PT SITTING AND EATING DINNER. NO S/S OF ACUTE DISTRESS NOTED. SAFETY MAINTAINED, CALL LIGHT IS WITH PT. WILL MONITOR.
[2020-03-23 01:09] VITALS: BP_SYST 127
[2020-03-23] MEDS: MORPHINE 4 MG/ML INJ. SYRINGE IVP PRN (03:25)
[2020-03-23] MEDS: D5NS 1,000 ML IV SCH (04:24)
[2020-03-23 08:00] VITALS: BP_SYST 128
--- NOTE | 2020-03-23 08:00 | NUR ---
A/OX4,AFEBRILE,VSS,RESTING WELL IN BED,NO C/O PAIN OR DISCOMFORT,NEEDS ATTENDED,CALL LIGHT & PERSONAL ITEMS WITHIN PT REACH,SAFETY MAINTAINED,CONTINUE TO MONITOR PT.
[2020-03-23] MEDS: ENOXAPARIN SODIUM 40 MG/0.4 ML SYRINGE SUBCUT SCH (08:48)
[2020-03-23 09:04] LABS: CALCIUM 8.1 mg/dL (8.4-11.0); CREATININE 0.73 mg/dL (0.55-1.30); POTASSIUM 3.4 mmol/L (3.5-5.1)
[2020-03-23 09:23] LABS: BASOPHILS # (AUTO) 0.1 K/uL (0.0-0.2); BASOPHILS % (AUTO) 0.8 % (0.0-2.0); EOSINOPHILS # (AUTO) 0.3 K/uL (0.0-0.4); EOSINOPHILS % (AUTO) 4.6 % (0.0-4.0); HEMATOCRIT 35.5 % (36-54); HEMOGLOBIN 11.9 g/dL (14.0-18.0); LYMPHOCYTES # (AUTO) 2.3 K/uL (1.0-5.5); LYMPHOCYTES % (AUTO) 34.1 % (20.5-51.5); MEAN CORPUSCULAR HEMOGLOBIN 31 pg (27-31); MEAN CORPUSCULAR HGB CONC 34 % (32-36); MEAN CORPUSCULAR VOLUME 91 fL (79.0-98.0); MONOCYTES # (AUTO) 0.7 K/uL (0.0-1.0); NEUTROPHILS # (AUTO) 3.4 K/uL (1.8-7.7); NEUTROPHILS % (AUTO) 50.5 % (40.0-70.0); PLATELET COUNT (AUTO) 569 K/uL (130-430); RED BLOOD CELL COUNT(AUTO) 3.92 MIL/uL (4.2-6.2); RED CELL DISTRIBUTION WIDTH 13.4 % (9.0-15.0); WHITE BLOOD COUNT (AUTO) 6.7 K/uL (4.8-10.8)
--- NOTE | 2020-03-23 10:00 | NUR ---
PT TOLEATED SOFT DIET,NO N/V,IVF CONTINUE INFUSING,HOURLY ROUNDS MADE,SAFETY MAINTAINED.
[2020-03-23] MEDS ORDERED: POTASSIUM CHLORIDE 20 MEQ TAB.PRT.SR PO ONE (11:00)
--- NOTE | 2020-03-23 12:00 | NUR ---
CAME AND SEEN PT.REMOVE ALONSO CATHETER PER ORDER.DC BRENDA IN ABD INCISION BRENDA, & APPLIED STERISTRIPS,OK TO D/C HOME PER ORDER.
--- NOTE | 2020-03-23 12:00 | NUR ---
CM note: updated pt's status and faxed current progress notes to Saira Carrington today. Per Saira she disagreed with the discharge because pt still have diarrhea. She will approve for the pt to remain in [facility] till tomorrow to make sure the readiness for discharge since this is a readmission for complications after surgery. --HALLE Flores dept made aware. Addendum: 03/23/20 at 1648 by Mica Banuelos RN >> Per SO Buckley, Pt 's stool is improving and md approved for discharge today.
[2020-03-23 12:40] VITALS: BP_SYST 124
--- NOTE | 2020-03-23 14:00 | NUR ---
PT HAS LOOSE BM 2X,PERICARE RENDERED,CONTINUE TO MONITOR PT.
--- NOTE | 2020-03-23 16:53 | NUR ---
pt sitting up in chair,and voided well without problems,pt said he knows and has been cath himself at home if there's urinary issues,d/c iv,d/c instruction given and explained to pt.leaving via w/c,taken home by his family.
--- NOTE | 2020-03-27 15:22 | NUR ---
Auto Engine Mechanic: follow up WOOD FORM BUILDER called [facility],[phone], fax is [phone] and spoke to Amparo who stated she needed a more detailed order. was able to accomadate. WOOD FORM BUILDER faxd over the order. Amparo stated she will have pt. seen tomorrow. WOOD FORM BUILDER called former pt. Mr. Torres, . WOOD FORM BUILDER notified him that someone from [facility] will be in contact with him and will be sending someone to his home tomorrow. He was greatful. WOOD FORM BUILDER will remain available as needed.
--- NOTE | 2020-03-28 10:25 | NUR ---
Discharge Follow Up Phone Call Phoned patient, . Patient stated he was doing fine. [facility] has contacted him and scheduled an appointment for today. He has made his follow up appointments. He is following his discharge instructions, ie no heavy lifting. No questions or concerns.
== END 2020-03-23 17:15 | disposition home or self-care (01) | DRG 252 ==
LOC: SED 23:56 → STU 03-19 04:15 → SMU 03-21 22:11
PROVIDERS: ADMIT Surgery; ATTEND Surgery
PROC: BT101ZZ Fluoroscopy of Bladder using Low Osmolar Contrast (ICD-10-PCS; principal; 2020-03-22)
DX: K91.89 Other postprocedural complications and disorders of digestive system (principal); K56.7 Ileus, unspecified; Q05.9 Spina bifida, unspecified; D72.829 Elevated white blood cell count, unspecified; J44.9 Chronic obstructive pulmonary disease, unspecified; Z53.31 Laparoscopic surgical procedure converted to open procedure; E44.1 Mild protein-calorie malnutrition
CPT/HCPCS: 36415; 74018; 74430; 80048; 80053; 82150-TC; 83690-TC; 85025; 85610-TC; 87081; 87230-TC; 94660; 96361; 96374; 96375; 96376; 99285; G0378; J1170; J1650; J2270; J2405; J2543; J7042; J7120; Q9958

== ENCOUNTER 2021-01-11 19:43 | Emergency (ER) | payer MEDICAID, SELFPAY ==
[~2021-01-11] VITALS: Ht 167.6 cm; Wt 140.6 kg
[2021-01-11 19:46] VITALS: BP_SYST 167
--- NOTE | 2021-01-11 19:49 | NUR ---
Patient to ER [facility] for evaluation. Side rails up. Report given to SO Lee
--- NOTE | 2021-01-11 19:50 | NUR ---
PT AAO AND AMBULATORY REPORTING RIGHT SHOULDER PAIN AFTER HE FELL WHEN CLEANING POOL. PT LANDED ON RIGHT ARM/SHOULDER AND STERNUM. PT REPORTS PAIN 2/10 WHEN HE REMAINS STILL. WITH MOVEMENT PAIN IS 10/10. PT HEARS POPPING SOUND WITH MOVEMENT WELL.
--- NOTE | 2021-01-11 20:00 | NUR ---
DR. WILLOUGHBY AT [facility] TO ASSESS.
[2021-01-11] MEDS ORDERED: IBUP-1969 PO (20:06)
[2021-01-11 21:10] VITALS: BP_SYST 135
--- NOTE | 2021-01-11 21:10 | NUR ---
Patient given written and verbal discharge instructions and verbalizes understanding. ER MD discussed with patient the results and treatment provided. Patient in stable condition. ID arm band removed. Rx of Ibuprofen given. Patient educated on pain management and to follow up with PMD. Pain Scale 2. Opportunity for questions provided and answered. Medication side effect fact sheet provided.
== END 2021-01-11 21:10 | disposition home or self-care (01) ==
LOC: SED 19:43
DX: S43.001A Unspecified subluxation of right shoulder joint, initial encounter (principal); Z79.899 Other long term (current) drug therapy; W18.39XA Other fall on same level, initial encounter; Y93.89 Activity, other specified; Y92.89 Other specified places as the place of occurrence of the external cause; Y99.8 Other external cause status
CPT/HCPCS: 73030; 99283

== ENCOUNTER 2022-05-06 18:30 | Emergency (ER) | payer MEDICAID ==
[~2022-05-06] VITALS: Ht 167.6 cm; Wt 145.1 kg
[~2022-05-06 18:30] MED LIST changes: +IBUP-1969 PO
[2022-05-06 18:44] VITALS: BP_SYST 188
[2022-05-06] MEDS ORDERED: MORPHINE 4 MG INJ. 4 MG/ML VIAL IM ONE (19:00)
[2022-05-06] MEDS ORDERED: HYDR-3917 PO (19:43)
[2022-05-06] MEDS ORDERED: METH-634 PO (19:43)
--- NOTE | 2022-05-06 20:54 | NUR ---
DC PT HOME AAOX4, NO SOB NOTED AND NAD. DC INSTRUCTION AND PRESCRIPTION WERE GIVEN TO PT AND HE VERBALIZED UNDERSTANDING
== END 2022-05-06 20:53 | disposition home or self-care (01) ==
LOC: SED 18:30
DX: M54.50 Low back pain, unspecified (principal); Z91.040 Latex allergy status; Z79.899 Other long term (current) drug therapy
CPT/HCPCS: 99283; 96372; J2270